=== PATIENT | female | born 1990 | race Caucasian/White ===

== ENCOUNTER 2016-04-03 12:19 | Outpatient (CLI) | payer MEDICAID ==
[2016-04-03 13:03] LABS: APPEARANCE,URINE SLIGHTLY-CLOUDY; BILIRUBIN,URINE NEGATIVE (NEGATIVE); GLUCOSE, URINE NEGATIVE (NEGATIVE); KETONES,URINE NEGATIVE (NEGATIVE); LEUKOCYTE ESTERASE,URINE NEGATIVE (NEGATIVE); NITRITE,URINE NEGATIVE (NEGATIVE); PROTEIN,URINE NEGATIVE (NEGATIVE); URINE SPECIFIC GRAVITY 1.002; UROBILINOGEN,URINE NEGATIVE mg/dL (<2.0)
[2016-04-03 13:10] LABS: AMNISURE (ROM) NEGATIVE (NEGATIVE)
[2016-04-03 13:17] LABS: URINE BARBITURATES SCREEN NEGATIVE; URINE METHADONE SCREEN NEGATIVE; URINE OPIATES LOW NEGATIVE; URINE PHENCYCLIDINE SCREEN NEGATIVE
== END 2016-04-03 13:24 | disposition home or self-care (01) ==
LOC: LC 12:19
PROVIDERS: ATTEND Specialist
PROC: 4A1HXCZ Monitoring of Products of Conception, Cardiac Rate, External Approach (ICD-10-PCS; principal; 2016-04-03)
DX: O47.1 False labor at or after 37 completed weeks of gestation (principal); O46.93 Antepartum hemorrhage, unspecified, third trimester; Z3A.39 39 weeks gestation of pregnancy
CPT/HCPCS: 59025; 80307; 81005; 84112

== ENCOUNTER 2016-04-07 15:25 | Outpatient (CLI) | payer MEDICAID ==
--- NOTE | 2016-04-07 15:32 | Non Stress Test Report ---
Non Stress Test Datetime Report Generated by CPN: 04/07/2016 15:32 DEMOGRAPHIC EGA NST: 39.0 INDICATION Indication for Study (NST) Other: suspected SROM MONITORING Monitor Explained: Monitor Explained; Test Explained; Patient Verbalized Understanding Time on Monitor: 04/03/2016 12:44 Time off Monitor: 04/03/2016 13:12 NST Duration: 28 NST INTERVENTIONS NST Interventions: None Physician Notified NST: Dr Neilsen BABY A: [id number] BABY A Movement : Present Contraction Frequency : x1 FHR Baseline : 145 Accelerations : 15X15 Decelerations : None Variability : Moderate 6-25bpm NST Review: Meets Criteria for Reactive NST NST Review and Verified By : Ulises Barrios RN NST Results: Reactive NST REPORT Report Trigger: Send Report
--- NOTE | 2016-04-07 16:01 | L&D Flow Sheet ---
LD Flowsheet Datetime Report Generated by CPN: 04/07/2016 16:00 Datetime: 04/07/2016 15:48 NBP Sys/Venita/Mean (mmHg): 132 (QS system process) : 89 (QS system process) : 103 (QS system process) Pulse: 123 (QS system process) LaborFlag: Antepartum (QS system process)
[2016-04-07 16:12] LABS: APPEARANCE,URINE CLOUDY; BILIRUBIN,URINE NEGATIVE (NEGATIVE); GLUCOSE, URINE NEGATIVE (NEGATIVE); KETONES,URINE NEGATIVE (NEGATIVE); LEUKOCYTE ESTERASE,URINE LARGE (NEGATIVE); NITRITE,URINE NEGATIVE (NEGATIVE); PROTEIN,URINE NEGATIVE (NEGATIVE); URINE SPECIFIC GRAVITY 1.006; UROBILINOGEN,URINE NEGATIVE mg/dL (<2.0)
[2016-04-07 16:18] LABS: AMNISURE (ROM) NEGATIVE (NEGATIVE)
[2016-04-07 16:28] LABS: URINE BARBITURATES SCREEN NEGATIVE; URINE METHADONE SCREEN NEGATIVE; URINE OPIATES LOW NEGATIVE; URINE PHENCYCLIDINE SCREEN NEGATIVE
--- NOTE | 2016-04-07 16:56 | Non Stress Test Report ---
Non Stress Test Datetime Report Generated by CPN: 04/07/2016 16:55 DEMOGRAPHIC EGA NST: 39.4 INDICATION Indication for Study: Ordered by Provider Indication for Study (NST) Other: LC MONITORING Monitor Explained: Monitor Explained; Test Explained; Patient Verbalized Understanding Time on Monitor: 04/07/2016 15:42 Time off Monitor: 04/07/2016 16:39 NST Duration: 57 NST INTERVENTIONS NST Interventions: PO Hydration Physician Notified NST: P. Schumacher CNM BABY A Movement : Present Contraction Frequency : irreg FHR Baseline : 135 Accelerations : 15X15 Decelerations : None Variability : Moderate 6-25bpm NST Review: Meets Criteria for Reactive NST NST Review and Verified By : lito camp RNC NST Results: Reactive NST REPORT Report Trigger: Send Report
== END 2016-04-07 16:48 | disposition home or self-care (01) ==
LOC: LC 15:25
PROVIDERS: ATTEND Obstetrics & Gynecology
PROC: 4A1HXCZ Monitoring of Products of Conception, Cardiac Rate, External Approach (ICD-10-PCS; principal; 2016-04-07)
DX: O47.1 False labor at or after 37 completed weeks of gestation (principal); Z3A.39 39 weeks gestation of pregnancy
CPT/HCPCS: 59025; 80307; 81005; 84112

== ENCOUNTER 2016-04-16 10:38 | Outpatient (CLI) | payer MEDICAID | END 2016-04-16 11:12 | disposition home or self-care (01) | LOC: LC 10:38 | PROVIDERS: ATTEND Obstetrics & Gynecology | PROC: 4A1HXCZ Monitoring of Products of Conception, Cardiac Rate, External Approach (ICD-10-PCS; principal; 2016-04-16) | DX: O48.0 Post-term pregnancy (principal); Z3A.40 40 weeks gestation of pregnancy | CPT/HCPCS: 59025 ==

== ENCOUNTER 2016-04-17 02:40 | Outpatient (CLI) | payer MEDICAID ==
[2016-04-17 03:15] LABS: APPEARANCE,URINE CLOUDY; BILIRUBIN,URINE NEGATIVE (NEGATIVE); GLUCOSE, URINE NEGATIVE (NEGATIVE); KETONES,URINE 20 mg/dL (NEGATIVE); LEUKOCYTE ESTERASE,URINE TRACE (NEGATIVE); NITRITE,URINE NEGATIVE (NEGATIVE); PROTEIN,URINE NEGATIVE (NEGATIVE); URINE SPECIFIC GRAVITY 1.015; UROBILINOGEN,URINE NEGATIVE mg/dL (<2.0)
[2016-04-17 03:37] LABS: URINE BARBITURATES SCREEN NEGATIVE; URINE METHADONE SCREEN NEGATIVE; URINE OPIATES LOW NEGATIVE; URINE PHENCYCLIDINE SCREEN NEGATIVE
[2016-04-17 05:25] LABS: AMORPHOUS SEDIMENT,URINE TRACE /HPF; APPEARANCE,URINE CLOUDY; BILIRUBIN,URINE NEGATIVE (NEGATIVE); GLUCOSE, URINE NEGATIVE (NEGATIVE); KETONES,URINE TRACE mg/dL (NEGATIVE); LEUKOCYTE ESTERASE,URINE SMALL (NEGATIVE); NITRITE,URINE NEGATIVE (NEGATIVE); PROTEIN,URINE 30 mg/dL (NEGATIVE); URINE SPECIFIC GRAVITY 1.018; UROBILINOGEN,URINE NEGATIVE mg/dL (<2.0)
[2016-04-17] MEDS ORDERED: CEFTRIAXONE INJ 1000 MG VIAL ONE (06:03)
--- NOTE | 2016-04-17 06:45 | Non Stress Test Report ---
Non Stress Test Datetime Report Generated by CPN: 04/17/2016 06:44 DEMOGRAPHIC EGA NST: 41.0 EGA NST: 40.6 INDICATION Indication for Study: Ordered by Provider; Other Indication for Study: Ordered by Provider Indication for Study (NST) Other: labor check Indication for Study (NST) Other: Repeat MONITORING Monitor Explained: Monitor Explained; Test Explained; Patient Verbalized Understanding Monitor Explained: Monitor Explained; Test Explained; Patient Verbalized Understanding Time on Monitor: 04/17/2016 03:04 Time on Monitor: 04/16/2016 10:49 Time off Monitor: 04/17/2016 06:12 Time off Monitor: 04/16/2016 11:09 NST Duration: 188 NST Duration: 20 NST INTERVENTIONS NST Interventions: None NST Interventions: PO Hydration Physician Notified NST: Dr Bell Physician Notified NST: DrKatie Duval BABY A: [id number] BABY A Movement : Present Movement : Present Contraction Frequency : 2-4 Contraction Frequency : Irr FHR Baseline : 135 FHR Baseline : 150 Accelerations : 15X15 Accelerations : 15X15 Decelerations : None Decelerations : None Variability : Moderate 6-25bpm Variability : Moderate 6-25bpm NST Review: Meets Criteria for Reactive NST NST Review: Meets Criteria for Reactive NST NST Review and Verified By : Ayo Montesinos RN NST Review and Verified By : Monty MARADIAGA NST Results: Reactive NST Results: Reactive NST COMMENTS NST Comments: Reactive NST results reviewed with MD. Pt stable for D/C home. NST REPORT Report Trigger: Send Report
[2016-04-17] MEDS ORDERED: OXYCODONE HCL IR 5 MG TABLET PO PRN (22:20)
[2016-04-17] MEDS ORDERED: DIBUCAINE 1% OINTMENT 28 GM TP PRN (22:23)
[2016-04-17] MEDS ORDERED: BENZOCAINE/MENTHOL AEROSOL SPRAY 56 ML TOP PRN (22:23)
[2016-04-17] MEDS ORDERED: MEASLES,MUMPS&RUBELLA VACC/PF 0.5 ML VIAL SUBCUT PRN (22:23)
[2016-04-17] MEDS ORDERED: ZOLPIDEM TARTRATE 5 MG TABLET PO PRN (22:23)
[2016-04-17] MEDS ORDERED: DIPH/PERTUSS(ACELL)/TETANUS VAC/PF 0.5 ML SYR (>=10YO) IM PRN (22:23)
[2016-04-18] MEDS ORDERED: IBUPROFEN 800 MG TABLET PO SCH (06:00)
[2016-04-18] MEDS ORDERED: SENNOSIDES/DOCUSATE 8.6-50 MG 1 EACH TABLET PO SCH (10:00)
[2016-04-18] MEDS ORDERED: FERROUS SULFATE 325 MG TABLET PO SCH (10:00)
[2016-04-18] MEDS ORDERED: PRENATAL VITAMIN W-O CA NO5/FE FUMARATE/FA CAPSULE PO SCH (10:00)
[2016-04-18] MEDS ORDERED: DOCUSATE SODIUM 100 MG CAPSULE PO SCH (10:00)
== END 2016-04-17 06:22 | disposition home or self-care (01) ==
LOC: LC 02:40
PROVIDERS: ATTEND Obstetrics & Gynecology
PROC: 4A1HXCZ Monitoring of Products of Conception, Cardiac Rate, External Approach (ICD-10-PCS; principal; 2016-04-17)
DX: O47.1 False labor at or after 37 completed weeks of gestation (principal); Z3A.41 41 weeks gestation of pregnancy
CPT/HCPCS: 59025; 81005; 81001; 80307; J0696

== ENCOUNTER 2016-04-17 09:47 | Inpatient (IN) | payer MEDICAID ==
[2016-04-17] MEDS ORDERED: RINGERS SOLUTION,LACTATED 1,000 ML IV ONE (09:54)
[2016-04-17] MEDS ORDERED: PENICILLIN G POTASSIUM 5,000,000 UNIT in DEXTROSE 5%-WATER 100 ML IV ONE (09:54)
[2016-04-17] MEDS ORDERED: RINGERS SOLUTION,LACTATED 1,000 ML IV PRN (09:54)
[2016-04-17] MEDS ORDERED: LIDOCAINE 1% INJ-PF (10 MG/ML) 30 ML SDV ONE (09:55)
[2016-04-17] MEDS ORDERED: OXYTOCIN/NORMAL SALINE 20 UNIT/1,000 ML RTUINJ ONE (09:55)
[2016-04-17] MEDS ORDERED: MISOPROSTOL 0.2 MG TABLET ONE (09:55)
[2016-04-17] MEDS ORDERED: FENTANYL CITRATE INJ/PF 100 MCG/2 ML AMPUL ONE (09:56)
[2016-04-17] MEDS ORDERED: EPHEDRINE SULFATE INJ 50 MG/1 ML AMPULE ONE (09:56)
[2016-04-17] MEDS ORDERED: PHENYLEPHRINE HCL INJ/PF 10 MG/1 ML SDV ONE (09:56)
[2016-04-17] MEDS ORDERED: BUPIVACAINE HCL 0.25 % INJ/PF (2.5 MG/1 ML) 30 ML VIAL ONE (09:57)
[2016-04-17] MEDS ORDERED: FENTANYL/BUPIVACAINE/NS/PF 200 MCG/100 ML RTUINJ EPI ONE (09:57)
[2016-04-17] MEDS ORDERED: PENICILLIN G-K 5 MILLION UNIT VIAL ONE ×2 (09:57→13:16)
--- NOTE | 2016-04-17 10:00 | L&D Flow Sheet ---
LD Flowsheet Datetime Report Generated by CPN: 04/17/2016 10:00 Datetime: 04/17/2016 09:48 Frequency (min): q 3 min (Cammie Coreas RN) Pain Scale: 5 (Cammie Coreas RN) Pain Presence: Intermittent (Cammie Coreas RN) Pain Type: Contraction (Cammie Coreas RN) Pain Location: Abdomen; Back (Cammie Coreas RN) Pain Goal: 0 (Cammie Coreas RN) Pain Relief Measures: epidural requested. (Cammie Coreas RN) Pain Coping: Breathing Through Contractions (Cammie Coreas RN) Vaginal Bleeding: Normal Show (Cammie Coreas RN) Level of Consciousness: Fully Conscious (Cammie Coreas RN) DTR's/Clonus: DTRs 2+; No Clonus (Cammie Coreas RN) Headache: Denies (Cammie Coreas RN) Breath Sounds, Left: Clear and Equal (Cammie Coreas RN) Breath Sounds, Right: Clear and Equal (Cammie Coreas RN) Nausea/Vomiting: Denies (Cammie Coreas RN) RUQ Epigastric Pain: Denies (Cammie Coreas RN) LaborFlag: Antepartum (QS system process) Datetime: 04/17/2016 09:43 NBP Sys/Venita/Mean (mmHg): 145 (QS system process) : 95 (QS system process) : 113 (QS system process) Pulse: 130 (QS system process) LaborFlag: Antepartum (QS system process) Datetime: 04/17/2016 09:40 Dilatation (cm): 7.0 (Cammie Coreas RN) Effacement (%): 90 (Cammie Coreas RN) Station: -1 (Cammie Coreas RN) Exam by: Imelda Coreas RN (Cammie Coreas RN) Membrane Status: Bulging (Cammie Coreas RN) Datetime: 04/17/2016 06:22 Communication Comments: Pt D/C home in stable condition per Dr. Bell accompanied by FOB. (Mathieu Bateman RN) Datetime: 04/17/2016 06:18 Teaching Comments: Pt instructed to drink 5-6 pitchers of water per day and return for ctx increasing in intensity and frequency, leaking of fluid, bleeding like a period, and/or decreased movement. Pt instructed to keep scheduled appointments. Care notes given and reviewed with pt. Pt agrees and V/U regarding all topics discussed. (Mathieu Bateman RN) Datetime: 04/17/2016 06:12 Monitor Mode: External; Palpation (Mathieu Bateman RN) Frequency (min): 4-8 (Mathieu Bateman RN) Quality: Mild/Moderate (Mathieu Bateman RN) Duration (sec): 40-70 (Mathieu Bateman RN) Resting Tone (Palpate): Relaxed (Mathieu Bateman RN) Monitor Mode: External US (Mathieu Bateman RN) FHR Baseline Rate : 125 (Mathieu Bateman RN) Variability: Moderate 6-25 bpm (Mathieu Bateman RN) Accelerations: 15X15 (Mathieu Bateman RN) Decelerations: None (Mathieu Bateman RN) Antibiotics: Other Antibiotic @ Rocephin 1gm IM (Mathieu Bateman RN) Medication Comments: IM injection given in left ventrogluteal. Intended effects and possible side effects explained to pt. Pt agrees and V/U. (Mathieu Bateman RN) Datetime: 04/17/2016 06:00 Communication Comments: POC discussed with pt and family, both agree and V/U. (Mathieu Bateman RN) Datetime: 04/17/2016 05:58 Communication: Call/Page Placed to Provider (Mathieu Bateman RN) Provider Notified (Name): Dr Bell (Mathieu Bateman RN) Notification Reason: Status Update (Mathieu Bateman RN) Communication Comments: Called Dr Bell, advised of pt unchanged SVE upon return to room following ambulating unit. advised of clean catch urine results. Orders received to administer 1g Rocephin IM and D/C pt to home. (Mathieu Bateman RN) Datetime: 04/17/2016 05:50 Patient Position/Activity: Right Lateral (Mathieu Bateman RN) Datetime: 04/17/2016 05:49 NBP Sys/Venita/Mean (mmHg): 113 (QS system process) : 76 (QS system process) : 91 (QS system process) Pulse: 96 (QS system process) Pain Scale: 2 (Mathieu Bateman RN) Pain Presence: Intermittent (Mathieu Bateman RN) Pain Type: Contraction (Mathieu Bateman RN) Pain Location: Abdomen (Mathieu Bateman RN) Pain Relief Measures: Comfort Measures (Mathieu Bateman RN) Pain Coping: Talking Through Contractions (Mathieu Bateman RN) Pain Assessment Comments: pt reports feeling better after walking (Mathieu Bateman RN) Dilatation (cm): 2.5 (Mathieu Bateman RN) Effacement (%): 80 (Mathieu Bateman RN) Station: -2 (Mathieu Bateman RN) Exam by: Juan A Bateman RN (Mathieu Bateman RN) Comfort Measures: Breathing/Relaxation (Mathieu Bateman RN) LaborFlag: Antepartum (QS system process) Datetime: 04/17/2016 05:48 Patient Position/Activity: Left Tilt (Mathieu Bateman RN) Datetime: 04/17/2016 05:47 Maternal Comments: external monitors applied. (Mathieu Bateman RN) Maternal Comments: pt returns to room following ambulating unit. (Mathieu Bateman RN) Datetime: 04/17/2016 04:29 Monitor Mode: External; Palpation (Mathieu Bateman, RN) Frequency (min): 1.5-3.5 (Mathieu Bateman, RN) Quality: Mild/Moderate (Mathieu Bateman, RN) Duration (sec): 50-120 (Mathieu Bateman, RN) Resting Tone (Palpate): Relaxed (Mathieu Bateman, RN) Monitor Mode: External US (Mathieu Bateman, RN) FHR Baseline Rate : 135 (Mathieu Bateman, RN) Variability: Moderate 6-25 bpm (Mathieu Bateman, RN) Accelerations: 15X15 (Rukimberlyandra Bateman, RN) Decelerations: None (Mathieu Bateman, RN) Maternal Comments: Monitors D/C'd for pt to ambulate unit per Dr. Bell's order (Mathieu Bateman, RN) Datetime: 04/17/2016 04:27 Communication: Call/Page Placed to Provider (Mathieu Bateman RN) Provider Notified (Name): Dr Bell (Mathieu Bateman RN) Notification Reason: Status Update (Mathieu Bateman RN) Communication Comments: Called Dr. Bell, advised of Gs_Ps and EGA, FHTs, CTX, VS, SVE, pt medical history and complaints and urine results reviewed with MD. Orders received to allow pt to ambulate unit and recheck cervix after 1 hour. (Mathieu Bateman RN) Datetime: 04/17/2016 04:23 Dilatation (cm): 2.5 (Mathieu Bateman RN) Effacement (%): 80 (Mathieu Bateman RN) Station: -2 (Mathieu Bateman RN) Exam by: Juna A Bateman RN (Mathieu Bateman RN) Datetime: 04/17/2016 04:06 NBP Sys/Venita/Mean (mmHg): 123 (QS system process) : 84 (QS system process) : 100 (QS system process) Pulse: 126 (QS system process) LaborFlag: Antepartum (QS system process) Datetime: 04/17/2016 04:00 Monitor Mode: External; Palpation (Rucsandra Fransico, RN) Frequency (min): 2-6.5 (Rucsandra Fransico, RN) Quality: Mild/Moderate (Rucsandra Fransico, RN) Duration (sec): 40-120 (Rucsandra Fransico, RN) Resting Tone (Palpate): Relaxed (Rucsandra Fransico, RN) Monitor Mode: External US (Rucsandra Fransico, RN) FHR Baseline Rate : 135 (Rucsandra Fransico, RN) Variability: Moderate 6-25 bpm (Rucsandra Fransico, RN) Accelerations: 15X15 (Rucsandra Fransico, RN) Decelerations: None (Rucsandra Fransico, RN) Datetime: 04/17/2016 03:47 Patient Care Comments: additional pillows and blankets provided. (Rucsandra Fransico, RN) Datetime: 04/17/2016 03:41 Patient Position/Activity: Right Lateral (Mathieu Bateman, RN) Datetime: 04/17/2016 03:35 NBP Sys/Venita/Mean (mmHg): 119 (QS system process) : 76 (QS system process) : 92 (QS system process) Pulse: 99 (QS system process) LaborFlag: Antepartum (QS system process) Datetime: 04/17/2016 03:30 Monitor Mode: External; Palpation (Mathieu Bateman RN) Frequency (min): 3-5.5 (Mathieu Bateman RN) Quality: Mild/Moderate (Rucsandra Fransico, RN) Duration (sec): 50-70 (Mathieu Bateman, RN) Resting Tone (Palpate): Relaxed (Mathieu Bateman, RN) Monitor Mode: External US (Mathieu Bateman, RN) FHR Baseline Rate : 135 (Mathieu Bateman, RN) Variability: Moderate 6-25 bpm (Rucsandra Bateman, RN) Accelerations: 15X15 (Rukimberlyandra Bateman, RN) Decelerations: None (Mathieu Bateman, RN) Datetime: 04/17/2016 03:10 Temperature (F): 98.1 (Mathieu Bateman, RN) Temperature (C): 36.7 (QS system process) LaborFlag: Antepartum (QS system process) Datetime: 04/17/2016 03:08 Frequency (min): pt unsure (Mathieu Bateman, RN) Pain Scale: 0 (Mathieu Bateman RN) Pain Presence: Intermittent (Mathieu Bateman RN) Pain Type: Contraction (Mathieu Bateman, RN) Pain Location: Abdomen (Mathieu Bateman RN) Pain Goal: 3 (Mathieu Bateman RN) Pain Coping: Talking Through Contractions (Annotations: pt talking through ctx ) (Mathieu Bateman RN) Dilatation (cm): 2.0 (Mathieu Bateman RN) Effacement (%): 50 (Mathieu Bateman RN) Station: -2 (Mathieu Bateman RN) Exam by: Juan A Bateman RN (Mathieu Bateman RN) Vaginal Bleeding: None (Mathieu Bateman RN) Level of Consciousness: Fully Conscious (Mathieu Bateman RN) DTR's/Clonus: DTRs 2+; No Clonus (Mathieu Bateman RN) Headache: Denies (Mathieu Bateman RN) Breath Sounds, Left: Clear and Equal (Mathieu Bateman RN) Breath Sounds, Right: Clear and Equal (Mathieu Bateman RN) Nausea/Vomiting: Present (Annotations: pt reports feeling nauseated. ) (Mathieu Bateman RN) RUQ Epigastric Pain: Denies (Mathieu Bateman RN) LaborFlag: Antepartum (QS system process) Datetime: 04/17/2016 03:05 NBP Sys/Venita/Mean (mmHg): 125 (QS system process) : 80 (QS system process) : 98 (QS system process) Pulse: 113 (QS system process) Instructional Method: Verbal; Patient Instructed; Family/Support Person Instructed; Verbalized Understanding (Mathieu Bateman RN) Plan of Care: Plan of Care Discussed (Mathieu Bateman RN) Unit Routine: [place] to Room; [place]; Bed; Waiting Areas; Phone/Cell Phone Use; Photography; Unit Personnel; Monitoring; Bathroom Privileges (Mathieu Bateman RN) LaborFlag: Antepartum (QS system process)
[2016-04-17] MEDS ORDERED: BUPIVACAINE HCL 0.25 % INJ/PF (2.5 MG/1 ML) 30 ML VIAL INFIL ONE (10:28)
[2016-04-17] MEDS ORDERED: BENZOIN/ALOE VERA/STORAX/TOLU TINCTURE 60 ML TP PRN (10:28)
[2016-04-17] MEDS ORDERED: FENTANYL/BUPIVACAINE/NS/PF 100 ML EPI PRN (10:28)
[2016-04-17 10:40] LABS: ABSOLUTE LYMPHOCYTES (AUTO) 1.5 10^3/uL (0.5-4.7); ABSOLUTE MONOCYTES (AUTO) 0.9 10^3/uL (0.1-1.4); ABSOLUTE NEUT (AUTO) 15.5 10^3/uL (1.7-8.2); BASOPHILS % (AUTO) 0.1 % (0-2); HEMATOCRIT 41.4 % (36.0-47.0); HEMOGLOBIN 14.3 g/dL (12.0-15.5); HGB HCT DIFFERENCE 1.5; LYMPHOCYTES % (AUTO) 8.2 % (13-45); MEAN CORPUSCULAR HEMOGLOBIN 30.6 pg (27.0-33.4); MEAN CORPUSCULAR HGB CONC 34.5 g/dL (32.0-36.0); MEAN CORPUSCULAR VOLUME 89 fl (80-97); MONOCYTES % (AUTO) 4.8 % (3-13); RED BLOOD COUNT 4.67 10^6/uL (3.72-5.28); SEGMENTED NEUTROPHILS % (AUTO) 86.9 % (42-78); WHITE BLOOD COUNT 17.9 10^3/uL (4.0-10.5)
--- NOTE | 2016-04-17 12:00 | L&D Flow Sheet ---
LD Flowsheet Datetime Report Generated by CPN: 04/17/2016 12:00 Datetime: 04/17/2016 11:53 Contraction Comments: toco zeroed (Cammie Baidy, RN) Datetime: 04/17/2016 11:48 Monitor Interventions for UA: Difficult Run Adjusted (Cammie Baidy, RN) Datetime: 04/17/2016 11:45 Monitor Interventions for UA: Difficult Run Adjusted (Cammie Coreas RN) Datetime: 04/17/2016 11:41 NBP Sys/Venita/Mean (mmHg): 135 (QS system process) : 76 (QS system process) : 99 (QS system process) Pulse: 113 (QS system process) LaborFlag: Antepartum (QS system process) Datetime: 04/17/2016 11:39 Dilatation (cm): 9.0 (Cammie Coreas RN) Effacement (%): 100 (Cammie Coreas RN) Station: 0 (Cammie Coreas RN) Exam by: Imelda Coreas RN (Cammie Coreas RN) Membrane Status: Ruptured (Cammie Coreas RN) Membranes Rupture Method: Spontaneous (Cammie Coreas RN) Amniotic Fluid Color: Moderate Meconium (Cammie Coreas RN) Amniotic Fluid Amount: Moderate (Cammie Coreas RN) Amniotic Fluid Odor: Normal (Cammie Coreas RN) Datetime: 04/17/2016 11:37 I/O Interventions: Reynolds Cath Inserted (Cammie Coreas RN) Patient Care Comments: 14f clear yellow urine (Cammie Coreas RN) Datetime: 04/17/2016 11:35 NBP Sys/Venita/Mean (mmHg): 131 (QS system process) : 75 (QS system process) : 95 (QS system process) Pulse: 111 (QS system process) LaborFlag: Antepartum (QS system process) Datetime: 04/17/2016 11:34 NBP Sys/Venita/Mean (mmHg): 130 (QS system process) : 70 (QS system process) : 95 (QS system process) Pulse: 111 (QS system process) LaborFlag: Antepartum (QS system process) Datetime: 04/17/2016 11:33 NBP Sys/Venita/Mean (mmHg): 134 (QS system process) : 77 (QS system process) : 99 (QS system process) Pulse: 112 (QS system process) LaborFlag: Antepartum (QS system process) Datetime: 04/17/2016 11:32 NBP Sys/Venita/Mean (mmHg): 135 (QS system process) : 70 (QS system process) : 97 (QS system process) Pulse: 110 (QS system process) LaborFlag: Antepartum (QS system process) Datetime: 04/17/2016 11:29 Pulse: 118 (QS system process) SpO2 (%): 100 (QS system process) LaborFlag: Antepartum (QS system process) Datetime: 04/17/2016 11:28 NBP Sys/Venita/Mean (mmHg): 133 (QS system process) : 91 (QS system process) : 108 (QS system process) Pulse: 105 (QS system process) LaborFlag: Antepartum (QS system process) Datetime: 04/17/2016 11:27 NBP Sys/Venita/Mean (mmHg): 138 (QS system process) : 107 (QS system process) : 120 (QS system process) Pulse: 126 (QS system process) Epidural Procedure: Cath Placed (Cammie Coreas RN) Epidural Procedure: Test Dose (Cammie Coreas RN) LaborFlag: Antepartum (QS system process) Datetime: 04/17/2016 11:24 Pulse: 111 (QS system process) SpO2 (%): 99 (QS system process) Procedure Type: epidural (Cammie Coreas RN) Procedure Verify: Correct Patient Identity; Correct Side and Site are Marked; Accurate Procedure Consent Form; Agreement on Procedure to be Done; Correct Patient Position; Relevant Images and Results are Properly Labeled and Displayed; Addressed Need to Administer Antibiotics or Fluids for Irrigation; Safety Precautions Based on Patient History or Medication Use (Cammie Coreas RN) Anesthesia Plans: Epidural (Cammie Coreas RN) Epidural Positioning: Sitting (Cammie Coreas RN) LaborFlag: Antepartum (QS system process) Datetime: 04/17/2016 11:19 IV/Blood Work: New IV Bag Hung; IV Bag Number @ 2 (Cammie Coreas, RN) Datetime: 04/17/2016 11:15 NBP Sys/Venita/Mean (mmHg): 144 (QS system process) : 86 (QS system process) : 109 (QS system process) Pulse: 104 (QS system process) LaborFlag: Antepartum (QS system process) Datetime: 04/17/2016 11:09 Pulse: 231 (QS system process) Pulse: 202 (QS system process) SpO2 (%): 81 (QS system process) SpO2 (%): 82 (QS system process) LaborFlag: Antepartum (QS system process) Datetime: 04/17/2016 11:00 NBP Sys/Venita/Mean (mmHg): 143 (QS system process) : 97 (QS system process) : 116 (QS system process) Pulse: 113 (QS system process) Monitor Mode: External; Palpation (Cammie Coreas, RN) Frequency (min): 2-3 (Cammie Coreas, RN) Quality: Moderate to Strong (Cammie Baidy, RN) Duration (sec): 60-90 (Cammie Baibin, RN) Duration Criteria: Less than Two 120 Second Contractions (Cammie Coreas, RN) Pattern: Normal: <= 5 Contractions in 10 Minutes (Cammie Baibin, RN) Resting Tone (Palpate): Relaxed (Cammie Baibin, RN) Monitor Mode: External US (Cammie Coreas, RN) FHR Baseline Rate : 125 (Cammie Baibin, RN) Variability: Moderate 6-25 bpm (Cammie Baidy, RN) Accelerations: 15X15 (Cammie Baidy, RN) Decelerations: None (Cammie Baibin, RN) LaborFlag: Antepartum (QS system process) Datetime: 04/17/2016 10:50 Monitor Interventions for UA: Difficult Run Adjusted (Cammie Coreas, RN) Datetime: 04/17/2016 10:45 NBP Sys/Venita/Mean (mmHg): 137 (QS system process) : 92 (QS system process) : 109 (QS system process) Pulse: 110 (QS system process) LaborFlag: Antepartum (QS system process) Datetime: 04/17/2016 10:30 Monitor Mode: External; Palpation (Cammie Coreas, RN) Frequency (min): 2-4 (Cammie Coreas, RN) Quality: Moderate (Cammie Coreas, RN) Duration (sec): 50-90 (Cammie Coreas, RN) Duration Criteria: Less than Two 120 Second Contractions (Cammie Coreas, RN) Pattern: Normal: <= 5 Contractions in 10 Minutes (Cammie Coreas, RN) Resting Tone (Palpate): Relaxed (Cammie Coreas, RN) Monitor Mode: External US (Cammie Coreas, RN) FHR Baseline Rate : 125 (Cammie Coreas, RN) Variability: Moderate 6-25 bpm (Cammie Coreas, RN) Accelerations: 15X15 (Cammie Coreas, RN) Decelerations: None (Cammie Coreas, RN) Datetime: 04/17/2016 10:29 NBP Sys/Venita/Mean (mmHg): 156 (QS system process) : 98 (QS system process) : 121 (QS system process) Pulse: 118 (QS system process) LaborFlag: Antepartum (QS system process) Datetime: 04/17/2016 10:22 Antibiotics: Penicillin IV (Units) @ 5 million units (Cammie Coreas RN) IV/Blood Work: IV Started; IV Bolus Started (Cammie Coreas RN) Patient Care Comments: 20g in right hand (Cammie Coreas RN) Datetime: 04/17/2016 10:11 Dilatation (cm): 7.0 (Cammie Coreas RN) Effacement (%): 100 (Cammie Coreas RN) Station: -1 (Cammie Coreas RN) Exam by: Imelda Coreas RN (Cammie Coreas RN) Datetime: 04/17/2016 10:07 Respirations: 18 (Cammie Coreas RN) Temperature (F): 97.7 (Cammie Coreas RN) Temperature (C): 36.5 (QS system process) LaborFlag: Antepartum (QS system process)
[2016-04-17] MEDS ORDERED: PENICILLIN G POTASSIUM 2,500,000 UNIT in DEXTROSE 5%-WATER 50 ML IV SCH (14:00)
--- NOTE | 2016-04-17 14:00 | L&D Flow Sheet ---
LD Flowsheet Datetime Report Generated by CPN: 04/17/2016 14:00 Datetime: 04/17/2016 13:46 NBP Sys/Venita/Mean (mmHg): 116 (QS system process) : 69 (QS system process) : 88 (QS system process) Pulse: 94 (QS system process) LaborFlag: Antepartum (QS system process) Datetime: 04/17/2016 13:30 NBP Sys/Venita/Mean (mmHg): 110 (QS system process) : 68 (QS system process) : 83 (QS system process) Pulse: 101 (QS system process) Monitor Mode: External; Palpation (Cammie Coreas RN) Frequency (min): 2-3 (Cammie Coreas RN) Quality: Moderate to Strong (Cammie Coreas RN) Duration (sec): 70-110 (Cammie Coreas RN) Duration Criteria: Less than Two 120 Second Contractions (Cammie Coreas RN) Pattern: Normal: <= 5 Contractions in 10 Minutes (Cammie Coreas RN) Resting Tone (Palpate): Relaxed (Cammie Coreas RN) Monitor Mode: External US (Cammie Coreas RN) FHR Baseline Rate : 120 (Cammie Coreas RN) Variability: Moderate 6-25 bpm (Cammie Coreas RN) Accelerations: None (Cammie Coreas RN) Decelerations: Early (Cammie Coreas RN) Antibiotics: Penicillin IV (Units) @ 2.5 million (Cammie Coreas RN) LaborFlag: Antepartum (QS system process) Datetime: 04/17/2016 13:16 NBP Sys/Venita/Mean (mmHg): 118 (QS system process) : 72 (QS system process) : 89 (QS system process) Pulse: 98 (QS system process) LaborFlag: Antepartum (QS system process) Datetime: 04/17/2016 13:15 Monitor Mode: External; Palpation (Cammie Baidy, RN) Frequency (min): 2-3 (Cammie Baidy, RN) Quality: Moderate to Strong (Cammie Baidy, RN) Duration (sec): 60-120 (Cammie Baidy, RN) Duration Criteria: More than Two 120 Second or Greater Contractions (Cammie Baidy, RN) Pattern: Normal: <= 5 Contractions in 10 Minutes (Cammie Baidy, RN) Resting Tone (Palpate): Relaxed (Cammie Baidy, RN) Monitor Mode: External US (Cammie Baidy, RN) FHR Baseline Rate : 115 (Cammie Baidy, RN) Variability: Moderate 6-25 bpm (Cammie Baidy, RN) Accelerations: None (Cammie Baidy, RN) Decelerations: Early (Cammie Baidy, RN) Datetime: 04/17/2016 13:01 NBP Sys/Venita/Mean (mmHg): 116 (QS system process) : 66 (QS system process) : 86 (QS system process) Pulse: 100 (QS system process) Monitor Interventions for UA: Almedia Adjusted (Cammie Baidy, RN) LaborFlag: Antepartum (QS system process) Datetime: 04/17/2016 13:00 Monitor Mode: External; Palpation (Cammie Baidy, RN) Frequency (min): 2-3 (Cammie Baidy, RN) Quality: Moderate to Strong (Cammie Baidy, RN) Duration (sec): 60-90 (Cammie Baidy, RN) Duration Criteria: Less than Two 120 Second Contractions (Cammie Baidy, RN) Pattern: Normal: <= 5 Contractions in 10 Minutes (Cammie Baidy, RN) Resting Tone (Palpate): Relaxed (Cammie Baidy, RN) Monitor Mode: External US (Cammie Baidy, RN) FHR Baseline Rate : 115 (Cammie Baidy, RN) Variability: Moderate 6-25 bpm (Cammie Baidy, RN) Accelerations: None (Cammie Baidy, RN) Decelerations: Late (Cammie Baidy, RN) Datetime: 04/17/2016 12:58 Patient Position/Activity: Peanut Ball; Right Extreme (Cammie Baidy, RN) Datetime: 04/17/2016 12:47 NBP Sys/Venita/Mean (mmHg): 125 (QS system process) : 74 (QS system process) : 94 (QS system process) Pulse: 90 (QS system process) LaborFlag: Antepartum (QS system process) Datetime: 04/17/2016 12:45 Monitor Mode: External; Palpation (Cammie Coreas, RN) Frequency (min): 2-3 (Cammie Coreas, RN) Quality: Moderate to Strong (Cammie Coreas, RN) Duration (sec): 80-110 (Cammie Coreas, RN) Duration Criteria: Less than Two 120 Second Contractions (Cammie Coreas, RN) Pattern: Normal: <= 5 Contractions in 10 Minutes (Cammie Coreas, RN) Resting Tone (Palpate): Relaxed (Cammie Coreas, RN) Monitor Mode: External US (Cammie Coreas, RN) FHR Baseline Rate : 120 (Cammie Coreas, RN) Variability: Moderate 6-25 bpm (Cammie Baidy, RN) Accelerations: None (Cammie Coreas, RN) Decelerations: Early (Cammie Joss, RN) Datetime: 04/17/2016 12:31 NBP Sys/Venita/Mean (mmHg): 128 (QS system process) : 66 (QS system process) : 87 (QS system process) LaborFlag: Antepartum (QS system process) Datetime: 04/17/2016 12:30 Monitor Mode: External; Palpation (Cammie Coreas, RN) Frequency (min): 1-2 (Cammie Coreas, RN) Quality: Moderate to Strong (Cammie Coreas, RN) Duration (sec): 60-100 (Cammie Coreas, RN) Duration Criteria: Less than Two 120 Second Contractions (Cammie Coreas, RN) Pattern: Normal: <= 5 Contractions in 10 Minutes (Cammie Coreas, RN) Resting Tone (Palpate): Relaxed (Cammie Coreas, RN) Monitor Mode: External US (Cammie Coreas, RN) FHR Baseline Rate : 115 (Cammie Coreas, RN) Variability: Moderate 6-25 bpm (Cammie Baibin, RN) Accelerations: None (Cammie Coreas, RN) Decelerations: None (Cammie Coreas, RN) Datetime: 04/17/2016 12:16 NBP Sys/Venita/Mean (mmHg): 136 (QS system process) : 61 (QS system process) : 88 (QS system process) Pulse: 96 (QS system process) LaborFlag: Antepartum (QS system process) Datetime: 04/17/2016 12:15 Monitor Mode: External; Palpation (Cammie Coreas, RN) Frequency (min): 1.5-2 (Cammie Coreas, RN) Quality: Moderate to Strong (Cammie Coreas, RN) Duration (sec): 60-90 (Cammie Coreas, RN) Duration Criteria: Less than Two 120 Second Contractions (Cammie Coreas, RN) Pattern: Normal: <= 5 Contractions in 10 Minutes (Cammie Coreas, RN) Resting Tone (Palpate): Relaxed (Cammie Coreas, RN) Monitor Mode: External US (Cammie Coreas, RN) FHR Baseline Rate : 115 (Cammie Coreas, RN) Variability: Moderate 6-25 bpm (Cammie Baidy, RN) Accelerations: 15X15 (Cammie Baibin, RN) Decelerations: Early; Prolonged (Cammie Joss, RN) Datetime: 04/17/2016 12:12 Dilatation (cm): 9.5 (Cammie Coreas, SHAI) Effacement (%): 100 (Cammie Coreas, RN) Station: 0 (Cammie Coreas RN) Exam by: Imelda Coreas RN (Cammie Coreas, SHAI) Datetime: 04/17/2016 12:09 Actions for Decelerations: Side to Side (Cammie Coreas, SHAI) Datetime: 04/17/2016 12:02 NBP Sys/Venita/Mean (mmHg): 126 (QS system process) : 88 (QS system process) : 102 (QS system process) Pulse: 108 (QS system process) LaborFlag: Antepartum (QS system process) Datetime: 04/17/2016 12:00 Monitor Mode: External; Palpation (Cammie Coreas RN) Frequency (min): 2-3 (Cammie Coreas RN) Quality: Moderate to Strong (Cammie Coreas RN) Duration (sec): 40-90 (Cammie Coreas RN) Duration Criteria: Less than Two 120 Second Contractions (Cammie Coreas RN) Pattern: Normal: <= 5 Contractions in 10 Minutes (Cammie Coreas RN) Resting Tone (Palpate): Relaxed (Cammie Coreas RN) Monitor Mode: External US (Cammie Coreas, SHAI) FHR Baseline Rate : 115 (Cammie Coreas RN) Variability: Moderate 6-25 bpm (Cammie Coreas RN) Accelerations: None (Cammie Coreas RN) Decelerations: Early (Cammie Coreas RN)
--- NOTE | 2016-04-17 16:00 | L&D Flow Sheet ---
LD Flowsheet Datetime Report Generated by CPN: 04/17/2016 16:00 Datetime: 04/17/2016 15:50 Respirations: 18 (Cammie Coreas, SHAI) Temperature (F): 98.6 (Cammie Coreas, RN) Temperature (C): 37.0 (QS system process) LaborFlag: Antepartum (QS system process) Datetime: 04/17/2016 15:45 NBP Sys/Venita/Mean (mmHg): 126 (QS system process) : 64 (QS system process) : 91 (QS system process) Pulse: 134 (QS system process) LaborFlag: Antepartum (QS system process) Datetime: 04/17/2016 15:31 NBP Sys/Venita/Mean (mmHg): 126 (QS system process) : 72 (QS system process) : 93 (QS system process) Pulse: 146 (QS system process) LaborFlag: Antepartum (QS system process) Datetime: 04/17/2016 15:16 NBP Sys/Venita/Mean (mmHg): 128 (QS system process) : 73 (QS system process) : 95 (QS system process) Pulse: 127 (QS system process) LaborFlag: Antepartum (QS system process) Datetime: 04/17/2016 15:01 NBP Sys/Venita/Mean (mmHg): 152 (QS system process) : 81 (QS system process) : 109 (QS system process) Pulse: 118 (QS system process) LaborFlag: Antepartum (QS system process) Datetime: 04/17/2016 14:33 Patient Position/Activity: Hands-Knees (Cammie Baidy, RN) Datetime: 04/17/2016 14:31 NBP Sys/Venita/Mean (mmHg): 132 (QS system process) : 76 (QS system process) : 98 (QS system process) Pulse: 110 (QS system process) LaborFlag: Antepartum (QS system process) Datetime: 04/17/2016 14:16 NBP Sys/Venita/Mean (mmHg): 140 (QS system process) : 76 (QS system process) : 103 (QS system process) Pulse: 108 (QS system process) LaborFlag: Antepartum (QS system process) Datetime: 04/17/2016 14:15 Monitor Mode: External; Palpation (Cammie Coreas RN) Frequency (min): 1.5-2 (Cammie Coreas RN) Quality: Moderate to Strong (Cammie Coreas RN) Duration (sec): 40-100 (Cammie Coreas RN) Duration Criteria: Less than Two 120 Second Contractions (Cammie Coreas RN) Pattern: Normal: <= 5 Contractions in 10 Minutes (Cammie Coreas RN) Resting Tone (Palpate): Relaxed (Cammie Coreas, RN) Monitor Mode: External US (Cammie Coreas RN) FHR Baseline Changes: Unable to Determine (Cammie Coreas RN) Variability: Minimal - Undetectable to <=5 bpm (Cammie Coreas RN) Accelerations: None (Cammie Coreas RN) Decelerations: None (Cammie Coreas, RN) Datetime: 04/17/2016 14:14 Monitor Interventions for FHR: Ultrasound Adjusted (Cammie Baidy, RN) Datetime: 04/17/2016 14:07 Respirations: 16 (Cammie Baidy, RN) Temperature (F): 98.7 (Cammie Coreas, RN) Temperature (C): 37.1 (QS system process) LaborFlag: Antepartum (QS system process) Datetime: 04/17/2016 14:03 Communication Comments: Dr Duval notified of 150/77 (Cammie Baidy, RN) Datetime: 04/17/2016 14:01 NBP Sys/Venita/Mean (mmHg): 150 (QS system process) : 77 (QS system process) : 104 (QS system process) Pulse: 131 (QS system process) LaborFlag: Antepartum (QS system process) Datetime: 04/17/2016 14:00 Monitor Mode: External; Palpation (Cammie Coreas RN) Frequency (min): 2-3 (Cammie Coreas RN) Quality: Moderate to Strong (Cammie Coreas RN) Duration (sec): 50-80 (Cammie Coreas RN) Duration Criteria: Less than Two 120 Second Contractions (Cammie Coreas RN) Pattern: Normal: <= 5 Contractions in 10 Minutes (Cammie Coreas RN) Resting Tone (Palpate): Relaxed (Cammie Coreas RN) Monitor Mode: External US (Cammie Coreas RN) FHR Baseline Changes: Unable to Determine (Cammie Coreas RN) Variability: Moderate 6-25 bpm (Cammie Coreas RN) Accelerations: 15X15 (Cammie Coreas, RN) Decelerations: Prolonged (Cammie Coreas RN) Dilatation (cm): 10.0 (Cammie Coreas RN) Effacement (%): 100 (Cammie Coreas RN) Station: 1 (Cammie Coreas, RN) Exam by: Imelda Coreas RN (Cammie Coreas, RN) Vaginal Exam Comments: anterior lip (Cammie Coreas RN) Patient Position/Activity: Tailors (Cammie Coreas, SHAI) Pushing: No Urge to Push (Cammie Coreas, SHAI)
[2016-04-17] MEDS ORDERED: DIPHENHYDRAMINE HCL 50 MG/ML VIAL ONE (16:29)
--- NOTE | 2016-04-17 18:00 | L&D Flow Sheet ---
LD Flowsheet Datetime Report Generated by CPN: 04/17/2016 18:00 Datetime: 04/17/2016 17:46 NBP Sys/Venita/Mean (mmHg): 134 (QS system process) : 74 (QS system process) : 98 (QS system process) Pulse: 137 (QS system process) Datetime: 04/17/2016 17:44 Stage of : Recovery (Cammie Coreas RN) Respirations: 16 (Cammie Coreas RN) Temperature (F): 99.1 (Cammie Coreas RN) Temperature (C): 37.3 (QS system process) Temperature Route: Axillary (Cammie Coreas RN) Pain Scale: 0 (Cammie Coreas RN) Pain Presence: None/Denies (Cammie Coreas RN) Pain Type: N/A (Cammie Coreas RN) Datetime: 04/17/2016 17:31 NBP Sys/Venita/Mean (mmHg): 129 (QS system process) : 81 (QS system process) : 101 (QS system process) Pulse: 160 (QS system process) LaborFlag: Antepartum (QS system process) Datetime: 04/17/2016 17:16 NBP Sys/Venita/Mean (mmHg): 137 (QS system process) : 70 (QS system process) : 100 (QS system process) Pulse: 144 (QS system process) LaborFlag: Antepartum (QS system process) Datetime: 04/17/2016 17:02 NBP Sys/Venita/Mean (mmHg): 134 (QS system process) : 80 (QS system process) : 102 (QS system process) Pulse: 126 (QS system process) LaborFlag: Antepartum (QS system process) Datetime: 04/17/2016 16:45 NBP Sys/Venita/Mean (mmHg): 138 (QS system process) : 83 (QS system process) : 106 (QS system process) Pulse: 105 (QS system process) LaborFlag: Antepartum (QS system process) Datetime: 04/17/2016 16:42 Patient Position/Activity: Left Extreme; Peanut Ball; Trendelenburg (Cammie Baidy, RN) Patient Care Comments: ice pack applied to perineum. (Cammie Coreas, RN) Datetime: 04/17/2016 16:31 NBP Sys/Venita/Mean (mmHg): 138 (QS system process) : 82 (QS system process) : 104 (QS system process) Pulse: 134 (QS system process) LaborFlag: Antepartum (QS system process) Datetime: 04/17/2016 16:29 Analgesics/Sedatives: Benadryl (mg) @ 50 (Cammie Coreas, RN) Medication Comments: IV (Cammie Coreas, RN) Datetime: 04/17/2016 16:27 Communication Comments: Dr Duval notified of vaginal swelling, orders received for IV benadryl. (Cammie Baidy, RN) Datetime: 04/17/2016 16:17 Pushing Position: Pushing Right Side (Cammie Baidy, RN) Datetime: 04/17/2016 16:10 Pushing Progress: Descent with Pushing; Caput Noted (Cammie Baidy, RN) Datetime: 04/17/2016 16:06 Stage 2 Comments: pushing hands and knees (Cammie Coreas, RN) Datetime: 04/17/2016 16:01 NBP Sys/Venita/Mean (mmHg): 139 (QS system process) : 81 (QS system process) : 103 (QS system process) Pulse: 115 (QS system process) LaborFlag: Antepartum (QS system process)
[2016-04-17] MEDS ORDERED: OXYCODONE HCL IR 5 MG TABLET PO PRN (18:41)
[2016-04-17] MEDS ORDERED: OXYCODONE HCL IR 5 MG TABLET ONE (18:45)
[2016-04-17] MEDS ORDERED: IBUPROFEN 800 MG TABLET ONE (18:45)
--- NOTE | 2016-04-17 19:31 | Delivery Summary ---
Del Sum A-C Datetime Report Generated by CPN: 04/17/2016 19:30 ADMISSION DATA Chief Complaint: Uterine Contractions Indication for Induction: Not Applicable Admission Impression: Postterm, Intrauterine ; Active Labor; Intact Membranes Admit Provider Comments: PCN for +GBS DELIVERY PERSONNEL Delivery Doctor:: Naeem Duval, DO Labor and Delivery Nurse:: Cammie Coreas RN Nursery Nurse:: Barbara Moser RN Telesales Professional/CHRISTIE: Taras Argueta CST Additional Personnel: : Renzo Rodriguez, SN MATERNAL INFORMATION Delivery Anesthesia: Epidural Medications After Delivery: Pitocin Drip 20 Units/1000ml NSS Estimated Blood Loss (ml): 300 Maternal Complications: None Provider Comments: of viable male in OA position Placenta delievered spontaneous and intact with 3v cord Fundus firm LABOR SUMMARY EDC: 04/10/2016 00:00 No. Babies in Womb: 1 Attempted: No Labor Anesthesia: Epidural LABOR INFORMATION Reason for Induction: Not Applicable Onset of Labor: 04/16/2016 23:00 Complete Dilatation: 04/17/2016 14:52 Oxytocin: N/A Group B Beta Strep: Positive Antibiotics # of Doses: 2 Antibiotics Time of Last Dose: 1330 Name of Antibiotic Given: PCN Steroids Given: None Reason Steroids Not Administered: Not Applicable MEMBRANES Membranes Rupture Method: Spontaneous Rupture of Membranes: 04/17/2016 11:39 Length of Rupture (hr): 6.05 Amniotic Fluid Color: Moderate Meconium Amniotic Fluid Amount: Moderate Amniotic Fluid Odor: Normal STAGES OF LABOR Stage 1 hr: 15 Stage 1 min: 52 Stage 2 hr: 2 Stage 2 min: 50 Stage 3 hr: 0 Stage 3 min: 2 Total Time in Labor hr: 18 Total Time in Labor min: 44 VAGINAL DELIVERY Episiotomy: None Laceration Extension: Second Degree Laceration Type: Perineal Laceration Repair: Yes Laceration Repair Note: repaired with 2-0 chromic in usual fashion with good hemostasis Sponge Count Correct: Yes Sharps Count Correct: Yes CSECTION DELIVERY Primary Indication: N/A Secondary Indication: N/A CSection Incidence: N/A Labor: N/A Elective: N/A CSection Incision: N/A BABY A INFORMATION Infant Delivery Date/Time: 04/17/2016 17:42 Method of Delivery: Vaginal Born in Route : No : N/A Forceps: N/A Vacuum Extraction: N/A Shoulder Dystocia : No PRESENTATION/POSITION BABY A Presentation: Cephalic Cephalic Presentation: Vertex Vertex Position: Direct Occiput Anterior Breech Presentation: N/A PLACENTA INFORMATION BABY A Placenta Delivery Time : 04/17/2016 17:44 Placenta Method of Delivery: Spontaneous Placenta Status: Delivered SCORES BABY A Heart Rate 1 min: >100 bpm Resp Effort 1 min: Slow, Irregular Reflex Irritability 1 min: Grimace Muscle Tone 1 min: Some Flexion of Extremities Color 1 min: Body Kelley, Extremities Blue Resuscitation Effort 1 min: Tactile Stimulation; PPV/NCPAP SCORE 1 MIN: 6 Heart Rate 5 min: >100 bpm Resp Effort 5 min: Good Cry Reflex Irritability 5 min: Cough or Sneeze or Pulls Away Muscle Tone 5 min: Some Flexion of Extremities Color 5 min: Body Kelley, Extremities Blue Resuscitation Effort 5 min: Tactile Stimulation SCORE 5 MIN: 8 INFORMATION BABY A Gestational Age at Delivery: 41.0 Gestational Status: Late Term- 41- 41.6 Weeks Outcome : Liveborn Infant Condition : Fair Infant Sex: Male IDENTIFICATION BABY A Infant Verification Date/Time: 04/17/2016 18:01 ID Band Number: [id number] Mother's Name Verified: Yes RN Verifying Infant: LKatie Martinez, RN and H. Fredy, RN WEIGHT/LENGTH BABY A Infant Birthweight (gm): 3742 Infant Weight (lb): 8 Weight (oz): 4 Infant Length (in): 21.00 Length (cm): 53.34 CORD INFORMATION BABY A No. Cord Vessels: 3 Nuchal Cord : N/A Cord Blood Taken: Yes-For Eval (Mom's Blood Type - or O+) Suction: Mouth; Nose ASSESSMENT BABY A Infant Complications: Meconium Physical Findings at Delivery: Caput Succedaneum; Molding of the Head Infant Respirations: Appears Normal Skin to Skin: Yes Skin to Skin Time (min): 30 Coconut Candy Maker/ALS Called : No Care By: Jeanette Martinez RN Transferred To: Remains with Mother BABY B INFORMATION : N/A SIGNATURES Signature: with User ID: Roberto Carlos
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
[2016-04-17] MEDS ORDERED: DIPH/PERTUSS(ACELL)/TETANUS VAC/PF 0.5 ML SYR (>=10YO) IM PRN (22:48)
[2016-04-17] MEDS ORDERED: ZOLPIDEM TARTRATE 5 MG TABLET PO PRN (22:48)
[2016-04-17] MEDS ORDERED: MEASLES,MUMPS&RUBELLA VACC/PF 0.5 ML VIAL SUBCUT PRN (22:48)
[2016-04-17] MEDS ORDERED: DIBUCAINE 1% OINTMENT 28 GM TP PRN (22:48)
[2016-04-18] MEDS: IBUPROFEN 800 MG TABLET PO SCH ×3 (06:00→21:58)
--- NOTE | 2016-04-18 07:00 | L&D Flow Sheet ---
LD Flowsheet Datetime Report Generated by CPN: 04/18/2016 07:00 Datetime: 04/17/2016 21:40 Stage of : Recovery (Mathieu Bateman, RN) Datetime: 04/17/2016 21:25 Stage of : Recovery (Rucsclifra Fransico, RN) NBP Sys/Venita/Mean (mmHg): 102 (QS system process) : 52 (QS system process) : 73 (QS system process) Pulse: 117 (QS system process) Respirations: 18 (Rucsandra Fransico, RN) Pain Scale: 2 (Mathieu Bateman, RN) Pain Presence: Constant (Mathieu Bateman RN) Pain Type: Ache (Mathieu Bateman RN) Pain Location: Perineum (Mathieu Bateman, RN) Pain Goal: 4 (Mathieu Bateman RN) Pain Relief Measures: Comfort Measures (Mathieu Bateman RN) Datetime: 04/17/2016 21:15 NBP Sys/Venita/Mean (mmHg): 103 (QS system process) : 57 (QS system process) : 75 (QS system process) Pulse: 129 (QS system process) Datetime: 04/17/2016 21:00 NBP Sys/Venita/Mean (mmHg): 101 (QS system process) : 58 (QS system process) : 77 (QS system process) Pulse: 121 (QS system process) Datetime: 04/17/2016 20:45 NBP Sys/Venita/Mean (mmHg): 109 (QS system process) : 58 (QS system process) : 80 (QS system process) Pulse: 118 (QS system process) Datetime: 04/17/2016 20:31 NBP Sys/Venita/Mean (mmHg): 115 (QS system process) : 59 (QS system process) : 83 (QS system process) Pulse: 117 (QS system process) Datetime: 04/17/2016 20:16 NBP Sys/Venita/Mean (mmHg): 115 (QS system process) : 55 (QS system process) : 81 (QS system process) Pulse: 137 (QS system process) Datetime: 04/17/2016 20:01 NBP Sys/Venita/Mean (mmHg): 119 (QS system process) : 62 (QS system process) : 84 (QS system process) Pulse: 130 (QS system process) Datetime: 04/17/2016 19:39 Stage of : Recovery (Rucsandra Fransico, RN) Datetime: 04/17/2016 19:31 Stage of : Recovery (Rucsclifra Fransico, RN) NBP Sys/Venita/Mean (mmHg): 133 (QS system process) : 74 (QS system process) : 98 (QS system process) Pulse: 110 (QS system process) Respirations: 18 (Mathieu Bateman, RN) Pain Scale: 4 (Akashcsмария Bateman, RN) Pain Presence: Constant (Rucsandra Fransico, RN) Pain Type: Ache (Rucsandra Fransico, RN) Pain Location: Perineum (Mathieu Bateman, RN) Pain Goal: 4 (Rucsandra Bateman, RN) Pain Relief Measures: Comfort Measures (Rucsandra Fransico, RN) Datetime: 04/17/2016 19:25 Stage of : Recovery (Mathieu Bateman, RN) Temperature (F): 98.7 (Akashandra Bateman, RN) Temperature (C): 37.1 (QS system process) Pain Scale: 4 (Mathieu Bateman, RN) Pain Presence: Constant (Mathieu Bateman, RN) Pain Type: Ache (Mathieu Bateman, RN) Pain Location: Perineum (Rucsandra Bateman, RN) Pain Goal: 4 (Rucsandra Bateman, RN) Pain Relief Measures: Comfort Measures (Akashandra Bateman, RN) Datetime: 04/17/2016 19:16 NBP Sys/Venita/Mean (mmHg): 136 (QS system process) : 79 (QS system process) : 102 (QS system process) Pulse: 88 (QS system process) Datetime: 04/17/2016 19:01 NBP Sys/Venita/Mean (mmHg): 140 (QS system process) : 86 (QS system process) : 109 (QS system process) Pulse: 100 (QS system process)
[2016-04-18 07:36] LABS: HEMATOCRIT 32.3 % (36.0-47.0); MEAN CORPUSCULAR HEMOGLOBIN 30.4 pg (27.0-33.4); MEAN CORPUSCULAR HGB CONC 34.5 g/dL (32.0-36.0); MEAN CORPUSCULAR VOLUME 88 fl (80-97); RED BLOOD COUNT 3.66 10^6/uL (3.72-5.28); RED CELL DISTRIBUTION WIDTH 13.5 % (11.5-14.0); WHITE BLOOD COUNT 14.7 10^3/uL (4.0-10.5)
[2016-04-18 07:52] LABS: HEMOGLOBIN 11.1 g/dL (12.0-15.5)
[2016-04-18] MEDS: BENZOCAINE/MENTHOL AEROSOL SPRAY 56 ML TOP PRN (09:20)
[2016-04-18] MEDS: SENNOSIDES/DOCUSATE 8.6-50 MG 1 EACH TABLET PO SCH (09:21)
[2016-04-18] MEDS: PRENATAL VITAMIN W-O CA NO5/FE FUMARATE/FA CAPSULE PO SCH (09:21)
[2016-04-18] MEDS: DOCUSATE SODIUM 100 MG CAPSULE PO SCH ×2 (09:22→18:20)
[2016-04-18] MEDS: FERROUS SULFATE 325 MG TABLET PO SCH ×2 (09:22→18:20)
--- NOTE | 2016-04-18 11:41 | PDOC PROGRESS REPORT ---
Subjective-OB Subjective: Post Delivery Day: 25 year old. Denies any needs at this time. Pt has FC in to BSD due to edema, doesn't want to get out of bed. Bleeding normal. Regular diet. Physical Exam (OB) Vital Signs: Temp Pulse Resp BP Pulse Ox 98.2 F 85 16 102/65 99 04/18/16 08:33 04/18/16 08:33 04/18/16 08:33 04/18/16 08:33 04/18/16 08:33 Intake & Output 04/17/16 04/18/16 04/19/16 06:59 06:59 06:59 Output Total 2600 Balance -2600 Weight 88.1 kg - Episiotomy/Laceration Site Condition: Well Approximated, Ecchymosis, Edematous Episiotomy/Laceration Note: urethra not edematous, FC needs to be discontinued - Lochia Lochia Amount: Small 10-25 ml Lochia Color: Rubra/Red - Abdomen Description: Soft, Round Hernia Present: No Fundal Description: Firm, Midline Fundal Height: u/u - u/2 Objective-Diagnostic Laboratory: 04/18/16 07:20 04/17/16 04/18/16 04/18/16 10:24 07:20 07:20 WBC 14.7 H RBC 3.66 L Hgb 11.1 L D Hct 32.3 L MCV 88 MCH 30.4 MCHC 34.5 RDW 13.5 Plt Count 240 Blood Type O NEGATIVE O NEGATIVE Antibody Screen POSITIVE Assessment and Plan(PN) - Assessment and Plan (1) Vaginal delivery Is this a current diagnosis for this admission?: Yes - Time Spent with Patient Time with patient: Less than 15 minutes - Disposition Anticipated Discharge: Home Within: within 48 hours
[2016-04-18] MEDS ORDERED: SERTRALINE HCL 50 MG TABLET PO ONE (12:15)
--- NOTE | 2016-04-18 18:00 | L&D Current Admission ---
Current Admit Datetime Report Generated by CPN: 04/18/2016 18:00 ADMISSION INFORMATION Current Admit Date/Time: 04/17/2016 09:39 (04/17/2016 03:08:Cammie Coreas RN) Reason for Admission: Onset of Labor (04/17/2016 03:08:Cammie Coreas RN) Chief Complaint: Contractions (04/17/2016 09:48:Cammie Coreas RN) EGA per Dates: 41.0 (04/17/2016 03:08:QS system process) Method of Arrival: Ambulatory (04/17/2016 03:08:Cammie Coreas RN) Reason for Induction: Not Applicable (04/17/2016 03:08:Cammie Coreas RN) Records Available: Yes; No (04/17/2016 03:08:Cammie Coreas RN) General Admission Information: Reviewed; Updated; Confirmed (04/17/2016 03:08:Cammie Coreas RN) General Admission Reviewed By: Jeanette Martinez RN (04/17/2016 03:08:Cammie Coreas RN) BELONGINGS/ADVANCED DIRECTIVES Valuables/Personal Effects: Purse/Wallet; Cell Phone (04/17/2016 03:08:Cammie Coreas RN) Other Belongings: clothing (04/17/2016 03:08:Cammie Coreas RN) Disposition of Belongings: Kept with Patient (04/17/2016 03:08:Cammie Coreas RN) Advance Direct for Healthcare: No, and Wants No Information (04/17/2016 03:08:Cammie Coreas RN) Durable Power of Reporting Consultant: No (04/17/2016 03:08:Cammie Coreas RN) Living Will: No (04/17/2016 03:08:Cammie Coreas RN) Organ Donor: Yes (04/17/2016 03:08:Cammie Coreas RN) Pt Rights Information Given: Yes (04/17/2016 03:08:Cammie Coreas RN) Pt Understands Pt Rights: Yes (04/17/2016 03:08:Cammie Coreas RN) LEARNING ASSESSMENT Knowledge Level: Understands L_D Process; Understands Care Activities; Had Pre-Hospital Education; Understands Diagnosis (04/17/2016 03:08:Cammie Coreas RN) Barriers to Learning: None (04/17/2016 03:08:Cammie Coreas RN) Learning Readiness: Motivated (04/17/2016 03:08:Cammie Coreas RN) Learns Best By: 1 to 1 Instruction; Demonstration (04/17/2016 03:08:Cammie Coreas RN) Learning Needs: Labor and Delivery Process; Pain Management; Symptoms to Report; Treatment Plan; Medication; Diagnosis; Nutrition; Equipment; Care; Community Resources (04/17/2016 03:08:Cammie Coreas RN) DOMESTIC VIOLANCE SCREENING Dom Viol Threatened/Hurt: No (04/17/2016 03:08:Cammie Coreas RN) Hx of Abuse/Neglect past 2yrs: No (04/17/2016 03:08:Cammie Coreas RN) Feel Unsafe Going Home: No (04/17/2016 03:08:Cammie Coreas RN) Addt'l Observ Indicating Abuse: No (04/17/2016 03:08:Cammie Coreas RN) Reason Unable to Complete Screen: N/A, Screen Completed (04/17/2016 03:08:Cammie Coreas RN) Considered Personal Harm/Suicide: No (04/17/2016 03:08:Cammie Coreas RN) NUTRITIONAL/FUNCTIONAL SCREENING Problem with Appetite >5 Days: No (04/17/2016 03:08:Cammie Coreas RN) Chew/Swallow Difficulties: No (04/17/2016 03:08:Cammie Coreas RN) Inappropriate Wt Gain/Loss: No (04/17/2016 03:08:Cammie Coreas RN) Presence Skin Breakdown/Ulcer: No (04/17/2016 03:08:Cammie Coreas RN) Special Diet: No (04/17/2016 03:08:Cammie Coreas RN) Pt Requests Potato Chip Packaging Machine Operator Visit: No (04/17/2016 03:08:Cammie Coreas RN) Hx of Any of the Following?: N/A (04/17/2016 03:08:Cammie Coreas RN) New Diagnosis of: N/A (04/17/2016 03:08:Cammie Coreas RN) Requires Assist w/Ambulation: No (04/17/2016 03:08:Cammie Coreas RN) Uses Assist Device to Ambulate: No (04/17/2016 03:08:Cammie Coreas RN) Pt Requires Help w/ADL's: No (04/17/2016 03:08:Cammie Coreas RN)
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
[2016-04-19] MEDS: IBUPROFEN 800 MG TABLET PO SCH ×2 (05:50→13:55)
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
--- NOTE | 2016-04-19 06:00 | L&D Current Admission ---
Current Admit Datetime Report Generated by CPN: 04/19/2016 06:00 ADMISSION INFORMATION Current Admit Date/Time: 04/17/2016 09:39 (04/17/2016 03:08:Cammie Coreas RN) Reason for Admission: Onset of Labor (04/17/2016 03:08:Cammie Coreas RN) Chief Complaint: Contractions (04/17/2016 09:48:Cammie Coreas RN) EGA per Dates: 41.0 (04/17/2016 03:08:QS system process) Method of Arrival: Ambulatory (04/17/2016 03:08:Cammie Coreas RN) Reason for Induction: Not Applicable (04/17/2016 03:08:Cammie Coreas RN) Records Available: Yes; No (04/17/2016 03:08:Cammie Coreas RN) General Admission Information: Reviewed; Updated; Confirmed (04/17/2016 03:08:Cammie Coreas RN) General Admission Reviewed By: Jeanette Martinez RN (04/17/2016 03:08:Cammie Coreas RN) BELONGINGS/ADVANCED DIRECTIVES Valuables/Personal Effects: Purse/Wallet; Cell Phone (04/17/2016 03:08:Cammie Coreas RN) Other Belongings: clothing (04/17/2016 03:08:Cammie Coreas RN) Disposition of Belongings: Kept with Patient (04/17/2016 03:08:Cammie Coreas RN) Advance Direct for Healthcare: No, and Wants No Information (04/17/2016 03:08:Cammie Coreas RN) Durable Power of Farm Management Adviser: No (04/17/2016 03:08:Cammie Coreas RN) Living Will: No (04/17/2016 03:08:Cammie Coreas RN) Organ Donor: Yes (04/17/2016 03:08:Cammie Coreas RN) Pt Rights Information Given: Yes (04/17/2016 03:08:Cammie Coreas RN) Pt Understands Pt Rights: Yes (04/17/2016 03:08:Cammie Coreas RN) LEARNING ASSESSMENT Knowledge Level: Understands L_D Process; Understands Care Activities; Had Pre-Hospital Education; Understands Diagnosis (04/17/2016 03:08:Cammie Coreas RN) Barriers to Learning: None (04/17/2016 03:08:Cammie Coreas RN) Learning Readiness: Motivated (04/17/2016 03:08:Cammie Coreas RN) Learns Best By: 1 to 1 Instruction; Demonstration (04/17/2016 03:08:Cammie Coreas RN) Learning Needs: Labor and Delivery Process; Pain Management; Symptoms to Report; Treatment Plan; Medication; Diagnosis; Nutrition; Equipment; Care; Community Resources (04/17/2016 03:08:Cammie Coreas RN) DOMESTIC VIOLANCE SCREENING Dom Viol Threatened/Hurt: No (04/17/2016 03:08:Cammie Coreas RN) Hx of Abuse/Neglect past 2yrs: No (04/17/2016 03:08:Cammie Coreas RN) Feel Unsafe Going Home: No (04/17/2016 03:08:Cammie Coreas RN) Addt'l Observ Indicating Abuse: No (04/17/2016 03:08:Cammie Coreas RN) Reason Unable to Complete Screen: N/A, Screen Completed (04/17/2016 03:08:Cammie Coreas RN) Considered Personal Harm/Suicide: No (04/17/2016 03:08:Cammie Coreas RN) NUTRITIONAL/FUNCTIONAL SCREENING Problem with Appetite >5 Days: No (04/17/2016 03:08:Cammie Coreas RN) Chew/Swallow Difficulties: No (04/17/2016 03:08:Cammie Coreas RN) Inappropriate Wt Gain/Loss: No (04/17/2016 03:08:Cammie Coreas RN) Presence Skin Breakdown/Ulcer: No (04/17/2016 03:08:Cammie Coreas RN) Special Diet: No (04/17/2016 03:08:Cammie Coreas RN) Pt Requests C D Reactor Operator Visit: No (04/17/2016 03:08:Cammie Coreas RN) Hx of Any of the Following?: N/A (04/17/2016 03:08:Cammie Coreas RN) New Diagnosis of: N/A (04/17/2016 03:08:Cammie Coreas RN) Requires Assist w/Ambulation: No (04/17/2016 03:08:Cammie Coreas RN) Uses Assist Device to Ambulate: No (04/17/2016 03:08:Cammie Coreas RN) Pt Requires Help w/ADL's: No (04/17/2016 03:08:Cammie Coreas RN)
--- NOTE | 2016-04-19 06:15 | L&D Care Plan ---
LD CARE PLANS Datetime Report Generated by CPN: 04/19/2016 06:15 Datetime: 04/17/2016 09:46 Pain State: Risk For (Cammie Coreas RN) Related To: Labor and Delivery Process (Cammie Coreas RN) Goal(s): Patients Pain will be Assessed and Managed; Patient will Verbalize Adequate Relief of Pain or the Ability to [place] with Current Pain (Cammie Coreas RN) Interventions: Assess Pain Severity on Scale of 0 (None) to 5 (Severe); Assess Type, Location and Intensity of Pain Each Time Client Reports Discomfort and Notify Provider if Unusal Pain Develops; Encourage Proper Breathing and Relaxation Techniques; Offer Alternatives Such as Repositioning, Calm Environment, Massages, Diversional Activities, Ice Pack, Splinting, and Ambulation; Administer Analgesics as Ordered; Assist with Epidural Placement as Appropriate; Evaluate Therapeutic Effectiveness of Medication and Treatments (Cammie Coreas RN) Outcome: Patient will Report Absence or Relief of Pain Consistent with Established Pain Goal (Cammie Coreas RN) Status: Ongoing (Cammie Coreas RN) Outcome: Patient will have a Decrease in Signs and Symptoms of Discomfort (Cammie Coreas RN) Status: Ongoing (Cammie Coreas RN) Outcome: Pain will be Controlled During Procedures (Cammie Coreas RN) Status: Ongoing (Cammie Coreas RN) Anxiety State: Risk For (Cammie Coreas RN) Related To: Labor and Delivery Process; Medical Interventions (Cammie Coreas RN) Goal(s): Patient will have Decreased Anxiety and be able to Function at Acceptable Levels (Cammie Coreas RN) Interventions: Assess Verbal and Nonverbal Behavioral Indicators of Anxiety; Assist Patient to Identify and Verbalize Symptoms of Anxiety; Identify and Demonstrate Techniques to Control Anxiety; Assist Patient with Coping Mechanisms to Manage Anxiety; Provide Theraputic Touch for the Patient; Explain to Patient, Using a Calm Reassuring Approach and Nonmedical Terms, All Activities, Procedures, and Concerns; Instruct Patient and Family about Post Discharge Care, Limitations, Symptoms to Report and Resources Available (Cammie Coreas RN) Outcome: Patient will Identify, Verbalize and Demonstrate Techniques to Control Anxiety (Cammie Coreas RN) Status: Ongoing (Cammei Coreas RN) Outcome: Patient's Posture, Facial Expressions, Gestures and Activity Level will Reflect Decreased Anxiety (Cammie Coreas RN) Status: Ongoing (Cammie Coreas RN) Outcome: Patient will Verbalize a Sense of Control and/or Acceptance of the Situation (Cammie Coreas RN) Status: Ongoing (Cammie Coreas RN) Outcome: Patient will Identify and Utilize Support Person (Cammie Coreas RN) Status: Ongoing (Cammie Coreas RN) Knowledge Deficit State: Risk For (Cammie Coreas RN) Related To: Labor and Delivery Process; Impending Alterations in Family Dynamics (Cammie Coreas RN) Goal(s): Patient and Family will Accurately Verbalize Understanding of the Disease Process (Cammie Coreas RN) Interventions: Assess Motivation and Willingness of Patient/Family to Learn; Assess Preferred Learning Mode: One to One Instruction, Reading, Videos, Group Discussion or Demonstration; Assess Barriers to Learning: Pain, Emotional State, Language Barrier, Cognitive Impairment, Visual or Hearing Deficits; Assess Patient and Family Knowledge of Disease Process, Medications and Treatment; Discuss Therapy and/or Treatment Options, Describe Rationale Behind Management, Therapy and Treatment Recommendations; Instruct Patient and Family on Signs and Symptoms to Report; Instruct Patient and Family on Medication Effects and Side Effects; Provide Appropriate and Timely Education Using Multiple Techniques; Provide Patient and Family with Support Group Information and Resources; Give Clear and Thorough Explanations and Demonstrations (Cammie Coreas RN) Outcome: Patient and Family will Verbalize Understanding of Condition, Treatment and Signs and Symptoms to Report (Cammie Coreas RN) Status: Ongoing (Cammie Coreas RN) Outcome: Patient will Identify Perceived Learning Needs and Express Motivation to Learn (Cammie Coreas RN) Status: Ongoing (Cammie Coreas RN) Outcome: Patient will Verbalize Understanding of Desired Content, and/or Performs Desired Skill Prior to Discharge (Cammie Coreas RN) Status: Ongoing (Cammie Coreas RN) Infection State: Risk For (Cammie Coreas RN) Related To: Invasive Procedures (Cammie Coreas RN) Goal(s): The Patient will be Free of Infection, Vital Signs Stable and Lab Work within Normal Parameters (Cammie Coreas RN) Interventions: Instruct and Reinforce Proper Handwashing, Hygiene, and Care Techniques to Patient and Family; Monitor Vital Signs; Monitor Patient for the Following Signs of Infection: Fever, Abdominal Tenderness, Unusual Discharge; Monitor Aminiotic Fluid, Urine and Lochia for Color and Odor; Observe Wounds, Incisions and Invasive Line Sites for Redness, Drainage and Edema; Assess IV Sites per Hospital Policy; Monitor Lab and Test Results and Notify Provider of Abnormal Findings; Assess Nutritional Status and Promote Good Nutrition (Cammie Coreas RN) Outcome: Patient will Remain Free of Infection (Cammie Coreas RN) Status: Ongoing (Cammie Coreas RN) Outcome: Infection will be Recognized Early to Allow for Prompt Treatment (Cammie Coreas RN) Status: Ongoing (Cammie Coreas RN) Outcome: Patient will have Vital Signs Within Expected Range (Cammie Coreas RN) Status: Ongoing (Cammie Coreas RN) Injury State: Risk For (Cammie Coreas RN) Related To: Labor and Delivery Process (Cammie Coreas RN) Goal(s): Patient will Remain Free from Injury (Cammie Coreas RN) Interventions: Monitoring as per Hospital Protocol; Assess Neurological Status; Perform Risk Assessment of Patients with Induction and ; Perform Fall Risk Assessment and Prevention per Hospital Protocol; Perform DVT Risk Assessment and Prophylaxis per Hospital Protocol; Ensure that Oxygen, Suction, and Resuscitation Medications and Equipment are Readily Available; Confirm Patient ID Prior to Procedure(s) and Medication Administration per Hospital Policy (Cammie Coreas RN) Outcome: Successful Fall Risk Prevention (Cammie Coreas RN) Status: Ongoing (Cammie Coreas RN) Outcome: Patient will Deliver without Adverse Sequela (Cammie Coreas RN) Status: Ongoing (Cammie Coreas RN) Outcome: Patient's Neurological Status will Remain Stable (Cammie Coreas RN) Status: Ongoing (Cammie Coreas RN)
[2016-04-19] MEDS: SENNOSIDES/DOCUSATE 8.6-50 MG 1 EACH TABLET PO SCH (09:54)
[2016-04-19] MEDS: FERROUS SULFATE 325 MG TABLET PO SCH (09:54)
[2016-04-19] MEDS: PRENATAL VITAMIN W-O CA NO5/FE FUMARATE/FA CAPSULE PO SCH (09:54)
[2016-04-19] MEDS: DOCUSATE SODIUM 100 MG CAPSULE PO SCH (09:54)
[2016-04-19] MEDS ORDERED: SERTRALINE HCL 50 MG TABLET PO SCH (10:00)
[2016-04-19 11:52] VITALS: BP 124/79
--- NOTE | 2016-04-19 11:58 | PDOC DISCHARGE SUMMARY ---
Final Diagnosis Discharge Date: 04/19/16 - Final Diagnosis (1) Post term at 41 weeks gestation Is this a current diagnosis for this admission?: Yes (2) Vaginal delivery Is this a current diagnosis for this admission?: Yes Discharge Data - Discharge Medication Home Medications: [place]-3 Fatty Acids [Fish Oil] 300 mg PO DAILY 03/06/16 Pnv #116/Iron Fumarate/FA/Dha [Expecta Combo Pack] 1 each PO DAILY Sertraline HCl [Zoloft] 25 mg PO DAILY 04/07/16 Docusate Sodium [Colace 100 mg Capsule] 100 mg PO BID #60 capsule 04/19/16 Ibuprofen [Motrin 800 mg Tablet] 800 mg PO Q8HP PRN #90 tablet 04/19/16 Reason(s) for Admission: Onset of Labor, Group B Strep Positive Procedures: Ultrasound Intrapartum Procedure(s): Spontaneous Vaginal Delivery Complication(s): Laceration-Perineal Laceration-Degree: 2nd - [place] Data Baby 1 Male at 1 minute: 6 at 5 minutes: 8 Weight: 3742 kg Home with Mother: Yes Complications: No - Diagnosis Test Laboratory: Temp Pulse Resp BP Pulse Ox 98.4 F 110 H 16 138/84 H 99 04/19/16 07:22 04/19/16 07:22 04/19/16 07:22 04/19/16 07:22 04/19/16 07:22 04/17/16 04/18/16 10:24 07:20 RBC 4.67 3.66 L Hgb 14.3 11.1 L D Hct 41.4 32.3 L - Discharge information/Instructions Discharge Activity: Activity As Tolerated, Balance Activity w/Rest, No Lifting Over 10 Pounds, No Lifting/Push/Pulling, Pelvic Rest, Slowly Increase Activity, No tub bath Discharge Diet: Regular Disposition: HOME, SELF-CARE Follow up with: [facility] in: 4, Weeks Physical Exam (OB) Vital Signs: Temp Pulse Resp BP Pulse Ox 98.4 F 110 H 16 138/84 H 99 04/19/16 07:22 04/19/16 07:22 04/19/16 07:22 04/19/16 07:22 04/19/16 07:22 Intake & Output 04/18/16 04/19/16 04/20/16 06:59 06:59 06:59 Intake Total 300 Output Total 2600 1750 Balance -2600 -1450 Weight 88.1 kg - General General Appearance: Appears well In distress: None Note:: desires for contraception but will obtain at pp visit - Episiotomy/Laceration Site Condition: Well Approximated - Lochia Lochia Amount: Scant < 10 ml Lochia Color: Rubra/Red - Abdomen Description: Soft, Round Hernia Present: No Fundal Description: Firm, Midline Fundal Height: u/u - u/2 - Respiratory Respiratory Status: No respiratory distress - Extremities Upper extremity: Normal inspection Lower extremities: Normal inspection - Neurological Cognition: Normal Orientation: AAOx4 - Psychological Associated symptoms: Normal affect, Normal mood - bonding well with baby, helpful family at bedside.
[2016-04-19] MEDS: BENZOCAINE/MENTHOL AEROSOL SPRAY 56 ML TOP PRN (13:56)
== END 2016-04-19 14:30 | disposition home or self-care (01) | DRG 775 ==
LOC: LR 09:47 → 2S 21:43
PROVIDERS: ADMIT Obstetrics & Gynecology; ATTEND Obstetrics & Gynecology
PROC: 10E0XZZ Delivery of Products of Conception, External Approach (ICD-10-PCS; principal; 2016-04-17)
PROC: 0KQM0ZZ Repair Perineum Muscle, Open Approach (ICD-10-PCS; 2016-04-17)
PROC: 4A1HXCZ Monitoring of Products of Conception, Cardiac Rate, External Approach (ICD-10-PCS; 2016-04-17)
DX: O48.0 Post-term pregnancy (principal); O70.1 Second degree perineal laceration during delivery; O99.824 Streptococcus B carrier state complicating childbirth; O99.344 Other mental disorders complicating childbirth; F32.9 Major depressive disorder, single episode, unspecified; O77.0 Labor and delivery complicated by meconium in amniotic fluid; Z3A.41 41 weeks gestation of pregnancy; Z37.0 Single live birth
CPT/HCPCS: 36415; 85025; 85027; 85461; 86592; 86850; 86870; 86900; 86901; J1200; J2370; J2540; J2590; J2790; J3010; J3490

== ENCOUNTER 2016-04-23 11:01 | Emergency (ER) | payer MEDICAID ==
--- NOTE | 2016-04-23 11:18 | ER Document Report ---
ED Medical Screen (RME) - General Stated Complaint: NUMBNESS Mode of Arrival: Ambulatory Information source: Patient Notes: 25 y/o F who reports is 6 days post vaginal delivery presents to ED c/o of bilateral upper and lower extremity swelling, numbness, and tingling and generalized weakness since delivery. Denies fever, n/v. Referred to ED by [facility]. I have greeted and performed a rapid initial assessment of this patient. A comprehensive ED assessment and evaluation of the patient, analysis of test results and completion of the medical decision making process will be conducted by additional ED providers. TRAVEL OUTSIDE OF THE [place] IN LAST 30 DAYS: No - Related Data Allergies/Adverse Reactions: acetaminophen [From Tylenol] Allergy (Severe, Verified 04/17/16 03:02) Swelling of Throat cider vinegar Allergy (Severe, Verified 04/17/16 03:02) Swelling of Throat Physical Exam - General General appearance: Alert In distress: None - Respiratory Respiratory status: No respiratory distress
[2016-04-23 11:50] LABS: ABSOLUTE EOSINOPHILS # (AUTO) 0.3 10^3/uL (0.0-0.6); ABSOLUTE LYMPHOCYTES (AUTO) 2.2 10^3/uL (0.5-4.7); ABSOLUTE MONOCYTES (AUTO) 0.7 10^3/uL (0.1-1.4); ABSOLUTE NEUT (AUTO) 6.9 10^3/uL (1.7-8.2); BASOPHILS % (AUTO) 0.3 % (0-2); HEMATOCRIT 37.7 % (36.0-47.0); HEMOGLOBIN 12.9 g/dL (12.0-15.5); LYMPHOCYTES % (AUTO) 21.2 % (13-45); MEAN CORPUSCULAR HEMOGLOBIN 30.1 pg (27.0-33.4); MEAN CORPUSCULAR HGB CONC 34.2 g/dL (32.0-36.0); MEAN CORPUSCULAR VOLUME 88 fl (80-97); MONOCYTES % (AUTO) 7.3 % (3-13); RED BLOOD COUNT 4.28 10^6/uL (3.72-5.28); RED CELL DISTRIBUTION WIDTH 12.9 % (11.5-14.0); SEGMENTED NEUTROPHILS % (AUTO) 68.2 % (42-78); WHITE BLOOD COUNT 10.2 10^3/uL (4.0-10.5)
[2016-04-23 11:55] LABS: APPEARANCE,URINE SLIGHTLY-CLOUDY; BILIRUBIN,URINE NEGATIVE (NEGATIVE); GLUCOSE, URINE NEGATIVE (NEGATIVE); KETONES,URINE NEGATIVE (NEGATIVE); LEUKOCYTE ESTERASE,URINE LARGE (NEGATIVE); NITRITE,URINE NEGATIVE (NEGATIVE); PROTEIN,URINE 30 mg/dL (NEGATIVE); URINE SPECIFIC GRAVITY 1.021; UROBILINOGEN,URINE NEGATIVE mg/dL (<2.0)
[2016-04-23 12:17] LABS: ALANINE AMINOTRANSFERASE 18 U/L (9-52); ALBUMIN 3.9 g/dL (3.5-5.0); ALKALINE PHOSPHATASE 135 U/L (38-126); ANION GAP 11 (5-19); ASPARTATE AMINO TRANSFERASE 23 U/L (14-36); BILIRUBIN,TOTAL 0.6 mg/dL (0.2-1.3); BLOOD UREA NITROGEN 19 mg/dL (7-20); CALCIUM 9.7 mg/dL (8.4-10.2); CARBON DIOXIDE 21 mmol/L (22-30); CHLORIDE 108 mmol/L (98-107); CREATININE RESULT 0.63 mg/dL (0.52-1.25); GLUCOSE 73 mg/dL (75-110); POTASSIUM 4.4 mmol/L (3.6-5.0); SODIUM 140.2 mmol/L (137-145); TOTAL PROTEIN 6.7 g/dL (6.3-8.2)
[2016-04-23] MEDS ORDERED: CEFTRIAXONE RTU 1 GM/D5W 50 ML IV ONE (13:01)
[2016-04-23] MEDS ORDERED: FUROSEMIDE INJ/PF 20 MG/2 ML SDV IV ONE (13:21)
--- NOTE | 2016-04-23 13:24 | ER Document Report ---
ED General - General Chief Complaint: Numbness Stated Complaint: NUMBNESS Mode of Arrival: Ambulatory Information source: Patient Notes: Patient is 6 days status post vaginal delivery. Patient is . Patient went to her [facility] provider's office with a complaint of numbness to bilateral upper extremities, feeling shaky, and swelling to bilateral upper and lower extremities. Patient does complain of occasional dizziness in which the room seems to be spinning. Patient also reports cough for the past 2 days. Patient denies any headache pain. Patient denies Any previous history of hypertension or problems during her . Patient does complain of some mild lower pelvic pain that she attributes to her recent delivery. TRAVEL OUTSIDE OF THE [place] IN LAST 30 DAYS: No - HPI Onset: Yesterday Onset/Duration: Gradual Pain Level: 1 Associated symptoms: Nonproductive cough. denies: Chest pain, Fever, Headache Exacerbated by: Denies Relieved by: Denies Similar symptoms previously: No Recently seen / treated by doctor: Yes - Related Data Allergies/Adverse Reactions: acetaminophen [From Tylenol] Allergy (Severe, Verified 04/23/16 11:17) Swelling of Throat cider vinegar Allergy (Severe, Verified 04/23/16 11:17) Swelling of Throat Past Medical History - General Information source: Patient Last Menstrual Period: 6 days status post vaginal delivery - Social History Smoking Status: Never Smoker Chew tobacco use (# tins/day): No Frequency of alcohol use: None Drug Abuse: None Lives with: Family Family History: Reviewed & Not Pertinent Patient has suicidal ideation: No Patient has homicidal ideation: No Renal/ Medical History: Reports: Other - Patient with only 1 kidney. Denies: Hx Peritoneal Dialysis Psychiatric Medical History: Reports: Hx Anxiety, Hx Depression Surgical Hx: Negative Review of Systems - Review of Systems Constitutional: No symptoms reported. denies: Fever, Recent illness EENT: No symptoms reported Cardiovascular: Dizziness, Edema Respiratory: Cough Gastrointestinal: Abdominal pain. denies: Vomiting Genitourinary: No symptoms reported. denies: Dysuria Female Genitourinary: No symptoms reported, Vaginal bleeding - From recent delivery. denies: Vaginal discharge Musculoskeletal: No symptoms reported. denies: Back pain, Neck pain Skin: No symptoms reported. denies: Rash Hematologic/Lymphatic: No symptoms reported Neurological/Psychological: Numbness - Generalized numbness to bilateral upper extremities. denies: Headaches Physical Exam - Vital signs Vitals: Temp Pulse Resp BP Pulse Ox 98.0 F 73 20 143/98 H 97 04/23/16 11:14 04/23/16 11:14 04/23/16 11:14 04/23/16 11:14 04/23/16 11:14 - General General appearance: Appears well, Alert In distress: None - HEENT Head: Normocephalic, Atraumatic Eyes: Normal Nasal: Normal Mouth/Lips: Normal Mucous membranes: Normal Neck: Normal - Respiratory Respiratory status: No respiratory distress Chest status: Nontender Breath sounds: Normal. No: Rales, Rhonchi, Stridor Chest palpation: Normal - Cardiovascular Rhythm: Regular Heart sounds: S1 appreciated, S2 appreciated Murmur: No - Abdominal Inspection: Normal Distension: No distension Tenderness: Tender - Mild lower pelvic tenderness - Back Back: Normal, Nontender. No: CVA tenderness, Vertebra tenderness - Extremities General upper extremity: Normal inspection, Normal ROM, Other - Mild decreased strength bilateral upper extremities 4 out of 5 General lower extremity: Edema - 2+ to bilateral lower extremities, Normal ROM, Normal strength - Neurological Neuro grossly intact: Yes Cognition: Normal Zacarias Coma Scale Eye Opening: Spontaneous Zacarias Coma Scale Verbal: Oriented Zacarias Coma Scale Motor: Obeys Commands [place] Coma Scale Total: 15 - Psychological Associated symptoms: Normal affect, Normal mood - Skin Skin Temperature: Warm Skin Moisture: Dry Skin Color: Pale Course - Re-evaluation Re-evalutation: 04/23/16 13:00 Consulted with tile erector Sherrie, who advised patient to come to the emergency department today. States that patient has not had a history of hypertension during her although had an isolated elevated reading in the office that upon recheck was on the upper limits of normal. 04/23/16 13:[address] Person regarding patient presentation and diagnostic workup. Recommends consultation with [facility] given patient's mildly elevated blood pressure as well as proteinuria. 04/23/16 13:[address] Saul, discussed patient's diagnostic studies as well as physical exam findings. Patient without any headache symptoms although does complain of dizziness. Dr. Saul recommends giving patient small dose of Lasix and having patient follow up in the office on Tuesday. Does not recommend admission at this time. Discussed consultation with Dr Person who agrees with plan of care. 04/23/16 late entry Patient reports that she had numbness in which she could not feel anything to bilateral upper extremities. Patient states she is afraid to hold her child as she has no sensation to upper extremities. Patient was using a cell phone making phone calls upon provider's entry into room. Patient did report driving herself here in which she used bilateral upper extremities to maneuver the vehicle. - Vital Signs Vital signs: Temp Pulse Resp BP Pulse Ox 98.4 F 110 H 20 121/86 H 98 04/23/16 14:50 04/23/16 14:50 04/23/16 14:50 04/23/16 14:50 04/23/16 14:50 - Laboratory Result Diagrams: 04/23/16 11:40 04/23/16 11:40 Laboratory results interpreted by me: 04/23/16 04/23/16 04/23/16 11:40 11:40 11:40 Chloride 108 H Carbon Dioxide 21 L Glucose 73 L Alkaline Phosphatase 135 H NT-Pro-B Natriuret Pep 374 H Urine Protein 30 H Urine Blood LARGE H Ur Leukocyte Esterase LARGE H 04/23/16 13:51 Labs- Entire Visit 04/23/16 04/23/16 04/23/16 11:40 11:40 11:40 WBC 10.2 RBC 4.28 Hgb 12.9 Hct 37.7 MCV 88 MCH 30.1 MCHC 34.2 RDW 12.9 Plt Count 414 Seg Neutrophils % 68.2 Lymphocytes % 21.2 Monocytes % 7.3 Eosinophils % 3.0 Basophils % 0.3 Absolute Neutrophils 6.9 Absolute Lymphocytes 2.2 Absolute Monocytes 0.7 Absolute Eosinophils 0.3 Absolute Basophils 0.0 Sodium 140.2 Potassium 4.4 Chloride 108 H Carbon Dioxide 21 L Anion Gap 11 BUN 19 Creatinine 0.63 Est GFR ( Amer) > 60 Est GFR (Non-Af Amer) > 60 Glucose 73 L Calcium 9.7 Total Bilirubin 0.6 Direct Bilirubin 0.0 AST 23 ALT 18 Alkaline Phosphatase 135 H NT-Pro-B Natriuret Pep Total Protein 6.7 Albumin 3.9 Urine Color YELLOW Urine Appearance SLIGHTLY-CLOUDY Urine pH 5.0 Ur Specific [place] 1.021 Urine Protein 30 H Urine Glucose (UA) NEGATIVE Urine Ketones NEGATIVE Urine Blood LARGE H Urine Nitrite NEGATIVE Urine Bilirubin NEGATIVE Urine Urobilinogen NEGATIVE Ur Leukocyte Esterase LARGE H Urine WBC (Auto) 81 Urine RBC (Auto) 136 Urine Bacteria (Auto) TRACE Squamous Epi Cells Auto 8 U Non-Squamous Epis Auto 5 Urine Mucus (Auto) RARE Urine Ascorbic Acid NEGATIVE 04/23/16 11:40 WBC RBC Hgb Hct MCV MCH MCHC RDW Plt Count Seg Neutrophils % Lymphocytes % Monocytes % Eosinophils % Basophils % Absolute Neutrophils Absolute Lymphocytes Absolute Monocytes Absolute Eosinophils Absolute Basophils Sodium Potassium Chloride Carbon Dioxide Anion Gap BUN Creatinine Est GFR ( Amer) Est GFR (Non-Af Amer) Glucose Calcium Total Bilirubin Direct Bilirubin AST ALT Alkaline Phosphatase NT-Pro-B Natriuret Pep 374 H Total Protein Albumin Urine Color Urine Appearance Urine pH Ur Specific [place] Urine Protein Urine Glucose (UA) Urine Ketones Urine Blood Urine Nitrite Urine Bilirubin Urine Urobilinogen Ur Leukocyte Esterase Urine WBC (Auto) Urine RBC (Auto) Urine Bacteria (Auto) Squamous Epi Cells Auto U Non-Squamous Epis Auto Urine Mucus (Auto) Urine Ascorbic Acid Discharge - Discharge Clinical Impression: Peripheral edema, Pelvic pain UTI (urinary tract infection) Qualifiers: Urinary tract infection type: site unspecified Hematuria presence: with hematuria Qualified Code(s): N39.0 - Urinary tract infection, site not specified Proteinuria Qualifiers: Proteinuria type: unspecified Qualified Code(s): R80.9 - Proteinuria, unspecified Condition: Stable Disposition: HOME, SELF-CARE Instructions: Cephalexin ([facility]), Urinary Tract Infection ([facility]), Pelvic Pain ([facility] ), Post- Edema ([facility]) Additional Instructions: Return immediately for any new or worsening symptoms Followup with your primary care provider, call tomorrow to make a followup appointment Follow up with Dr. Ramirez on Tuesday morning for recheck. Return immediately for any new or worsening symptoms, headache, increased swelling, or any concerning symptoms Prescriptions: Cephalexin Monohydrate [Keflex 500 mg Capsule] 500 mg PO Q6H 5 Days Referrals: JAROCHO BELTRAN MD [Primary Care Provider] - 04/26/16
[2016-04-23 14:52] VITALS: BP 121/86
--- NOTE | 2016-04-23 18:01 | EKG REPORT ---
SEVERITY:- BORDERLINE ECG - SINUS ARRHYTHMIA, RATE 50-76 PROBABLE LEFT ATRIAL ABNORMALITY : Confirmed by: Ming Beltran 23-Apr-2016 18:00:36
== END 2016-04-23 14:50 | disposition home or self-care (01) ==
LOC: ER 11:01
DX: O12.2 Gestational edema with proteinuria (principal); O86.20 Urinary tract infection following delivery, unspecified; O90.89 Other complications of the puerperium, not elsewhere classified; R10.2 Pelvic and perineal pain; R20.0 Anesthesia of skin; R42 Dizziness and giddiness; R05 Cough; Z88.6 Allergy status to analgesic agent; Z91.018 Allergy to other foods; Z90.5 Acquired absence of kidney
CPT/HCPCS: 93005; 99284; 96374; 96375; 36415; 85025; 80053; 81001; 83880; 71020; 93010; J1940; J0696

== ENCOUNTER 2016-05-13 20:34 | Emergency (ER) | payer MEDICAID ==
--- NOTE | 2016-05-13 21:25 | ER Document Report ---
ED Medical Screen (RME) - General Stated Complaint: VAGINAL BLEEDING Notes: Patient is a 25-year-old female presents emergency Department complaining of vaginal bleeding. Patient states that she had a baby on April 17, was discharged home on antibiotic for urinary tract infection and told to follow-up with her STICK INSERTER. Patient is followed up with her STICK INSERTER told that she is healing well. Patient states she breast fed for about 3 days but then stopped and switched to formula. Patient states that she's had spotting on and off in her . States that she's had vaginal bleeding and abdominal cramping over the past 2 days but thought it was too early to have a period. Patient states that she is not on control. Admits to pyuria I have greeted and performed a rapid initial assessment of this patient. A comprehensive ED assessment and evaluation of the patient, analysis of test results and completion of the medical decision making process will be conducted by additional ED providers. TRAVEL OUTSIDE OF THE [place] IN LAST 30 DAYS: No - Related Data Allergies/Adverse Reactions: acetaminophen [From Tylenol] Allergy (Severe, Verified 04/23/16 11:17) Swelling of Throat cider vinegar Allergy (Severe, Verified 04/23/16 11:17) Swelling of Throat Past Medical History Renal/ Medical History: Denies: Hx Peritoneal Dialysis Psychiatric Medical History: Reports: Hx Anxiety, Hx Depression Physical Exam - Vital signs Vitals: Temp Pulse Resp BP Pulse Ox 98.3 F 78 16 135/93 H 98 05/13/16 21:06 05/13/16 21:06 05/13/16 21:06 05/13/16 21:06 05/13/16 21:06 Course - Vital Signs Vital signs: Temp Pulse Resp BP Pulse Ox 98.3 F 78 16 135/93 H 98 05/13/16 21:06 05/13/16 21:06 05/13/16 21:06 05/13/16 21:06 05/13/16 21:06
[2016-05-13 22:27] LABS: APPEARANCE,URINE CLOUDY; BILIRUBIN,URINE NEGATIVE (NEGATIVE); GLUCOSE, URINE NEGATIVE (NEGATIVE); KETONES,URINE NEGATIVE (NEGATIVE); LEUKOCYTE ESTERASE,URINE TRACE (NEGATIVE); NITRITE,URINE NEGATIVE (NEGATIVE); PROTEIN,URINE 30 mg/dL (NEGATIVE); URINE SPECIFIC GRAVITY 1.013; UROBILINOGEN,URINE NEGATIVE mg/dL (<2.0)
--- NOTE | 2016-05-13 23:05 | ER Document Report ---
ED GI/ - General Chief Complaint: Vaginal Bleeding Stated Complaint: VAGINAL BLEEDING Notes: Patient is a 25-year-old female that comes emergency department for chief complaint of heavy vaginal bleeding for the past 2 days. She states that one hour after she applied a pad she soaked through it, she states she slept for about an hour and woke and was blood "all over the bed". She has some lower abdominal cramping. Patient states she is 1 month with uncomplicated vaginal delivery on 04/17/2016, patient states she almost immediately began formula instead of breast-feeding. She denies fever. She denies dysuria. She states she felt lightheaded earlier but denies passing out. She states she was treated for urinary tract infection recently "through my IV last month". TRAVEL OUTSIDE OF THE [place] IN LAST 30 DAYS: No - Related Data Allergies/Adverse Reactions: acetaminophen [From Tylenol] Allergy (Severe, Verified 04/23/16 11:17) Swelling of Throat cider vinegar Allergy (Severe, Verified 04/23/16 11:17) Swelling of Throat Past Medical History - General Information source: Patient - Social History Smoking Status: Never Smoker Chew tobacco use (# tins/day): No Frequency of alcohol use: None Drug Abuse: None Lives with: Family Family History: Reviewed & Not Pertinent Patient has suicidal ideation: No Patient has homicidal ideation: No Renal/ Medical History: Denies: Hx Peritoneal Dialysis Psychiatric Medical History: Reports: Hx Anxiety, Hx Depression Surgical Hx: Negative - Immunizations Immunizations up to date: Yes Hx Diphtheria, Pertussis, Tetanus Vaccination: Yes Review of Systems - Review of Systems Constitutional: No symptoms reported EENT: No symptoms reported Cardiovascular: No symptoms reported Respiratory: No symptoms reported Gastrointestinal: See HPI Genitourinary: See HPI Female Genitourinary: See HPI Musculoskeletal: No symptoms reported Skin: No symptoms reported Hematologic/Lymphatic: No symptoms reported Neurological/Psychological: No symptoms reported Physical Exam - Vital signs Vitals: Temp Pulse Resp BP Pulse Ox 98.3 F 78 16 135/93 H 98 05/13/16 21:06 05/13/16 21:06 05/13/16 21:06 05/13/16 21:06 05/13/16 21:06 Interpretation: Normal - General General appearance: Appears well, Alert In distress: None - HEENT Head: Normocephalic, Atraumatic Eyes: Normal Conjunctiva: Normal Extraocular movements intact: Yes Eyelashes: Normal Pupils: PERRL Nasal: Normal Mouth/Lips: Normal Mucous membranes: Normal Pharynx: Normal Neck: Normal - Respiratory Respiratory status: No respiratory distress Chest status: Nontender Breath sounds: Normal. No: Decreased air movement, Wheezing Chest palpation: Normal - Cardiovascular Rhythm: Regular Heart sounds: Normal auscultation Murmur: No - Abdominal Inspection: Normal Distension: No distension Bowel sounds: Normal Tenderness: Nontender. No: Tender, Guarding Organomegaly: No organomegaly - Back Back: Normal, Nontender. No: Tender - Extremities General upper extremity: Normal inspection, Nontender, Normal ROM, Normal strength General lower extremity: Normal inspection, Nontender, Normal ROM, Normal strength - Neurological Neuro grossly intact: Yes Cognition: Normal Orientation: AAOx4 [place] Com[place] Scale Eye Opening: Spontaneous [place] Com[place] Scale Verbal: Oriented Zacarias Coma Scale Motor: Obeys Commands [place] Com[place] Scale Total: 15 Speech: Normal Motor strength normal: LUE, RUE, LLE, RLE Sensory: Normal - Psychological Associated symptoms: Normal affect, Normal mood - Skin Skin Temperature: Warm Skin Moisture: Dry Skin Color: Normal Course - Re-evaluation Re-evalutation: Urinalysis is nonspecific with likely contaminated sample with patient's vaginal bleeding. Urine culture obtained. Patient does not have any noted tenderness in the suprapubic or lower abdominal area on my examination. Pelvic exam is unremarkable with only moderate vaginal bleeding, no concerning discharge, patient not tachycardic or hypotensive. Very well appearing and alert on examination. I did discuss an ultrasound and lab workup, patient declined these, states that she wants to leave now, she does agree to follow-up with her BINDING CEMENTER [facility] C[facility] and return if she worsens in any way. - Vital Signs Vital signs: Temp Pulse Resp BP Pulse Ox 97.8 F 60 16 129/93 H 98 05/14/16 00:51 05/14/16 00:51 05/14/16 00:51 05/14/16 00:51 05/14/16 00:51 - Laboratory Laboratory results interpreted by me: 05/13/16 21:30 Urine Protein 30 H Urine Blood LARGE H Ur Leukocyte Esterase TRACE H Discharge - Discharge Clinical Impression: hemorrhage of vagina Condition: Stable Disposition: HOME, SELF-CARE Additional Instructions: Evaluation up to this point with no concerning abnormalities, please follow-up with [facility] for additional evaluation closely. Please return to emergency department for any concerning or worsening symptoms including passing out, dizziness, severe pain, very heavy bleeding, fever, or any other concerning symptoms. Referrals: JOE PADRON, [Primary Care Provider] - Follow up as needed
[2016-05-14 01:46] VITALS: BP 129/93
[2016-05-14 01:59] LABS: CHLAM PCR NOT DETECTED (NOT DETECT)
== END 2016-05-14 00:55 | disposition home or self-care (01) ==
LOC: ER 20:34
DX: N93.9 Abnormal uterine and vaginal bleeding, unspecified (principal); R10.30 Lower abdominal pain, unspecified
CPT/HCPCS: 81001; 81025; 87086; 87210; 87491; 87591; 99283

== ENCOUNTER 2019-10-09 08:37 | Emergency (ER) | payer MEDICAID ==
[2019-10-09] MEDS ORDERED: LIDOCAINE 2% URO-JET 5 ML KIT MM ONE ×2 (09:58→12:00)
[2019-10-09] MEDS ORDERED: NORMAL SALINE 1000 ML 1,000 ML IV ONE ×2 (09:59→10:04)
[2019-10-09] MEDS ORDERED: MORPHINE SULFATE 10 MG/ML INJ IV ONE ×2 (09:59→12:00)
[2019-10-09] MEDS ORDERED: ONDANSETRON HCL INJ/PF 4 MG/2 ML SDV IV ONE ×2 (09:59→12:00)
--- NOTE | 2019-10-09 10:36 | RADIOLOGY REPORT (SQ) ---
EXAM DESCRIPTION: KUB/ABDOMEN (SINGLE VIEW) IMAGES COMPLETED DATE/TIME: 10/09/2019 10:24 am REASON FOR STUDY: abd pain COMPARISON: None. NUMBER OF VIEWS: One view. TECHNIQUE: Supine radiographic image of the abdomen acquired. LIMITATIONS: None. FINDINGS: BOWEL GAS PATTERN: Normal bowel gas pattern. No dilated loops. CALCIFICATIONS: No suspicious calcifications. SOFT TISSUES: No gross mass or suggestion of organomegaly. HARDWARE: None in the abdomen. BONES: No acute fracture. No worrisome bone lesions. OTHER: No other significant finding. IMPRESSION: NO RADIOGRAPHIC EVIDENCE FOR ACUTE ABDOMINAL DISEASE. TECHNICAL DOCUMENTATION: JOB ID: [id number] 2010 [employer]- All Rights Reserved Reading location - IP/workstation name: [email or web address]
--- NOTE | 2019-10-09 10:39 | ER Document Report ---
Entered by DON RODRIGUEZ SCRIBE 10/09/19 0912 Acting as scribe for:LIZBET GUNTER MD ED GI/ - General Chief Complaint: Vomiting Stated Complaint: VOMITING,ABDOMINAL PAIN Time Seen by Provider: 10/09/19 09:11 Primary Care Provider: JOE PADRON DO [NO LOCAL MD] - Follow up as needed Mode of Arrival: Ambulatory Information source: Patient Notes: This 29 year old female patient presents to the emergency department today for complaints of "being unable to poop or pee", abdominal pain, and generalized body aches. She reports that her LMP was 5 days ago (10/04) and it was normal and on time. Patient mentions that she feels "hot and dizzy" but she is afebrile here. TRAVEL OUTSIDE OF THE [place] IN LAST 30 DAYS: No - Related Data Allergies/Adverse Reactions: acetaminophen [From Tylenol] Allergy (Severe, Verified 04/23/16 11:17) Swelling of Throat cider vinegar Allergy (Severe, Verified 04/23/16 11:17) Swelling of Throat Past Medical History - General Information source: Patient - Social History Smoking Status: Never Smoker Cigarette use (# per day): No Frequency of alcohol use: None Drug Abuse: None Occupation: unemployed Family History: Reviewed & Not Pertinent Renal/ Medical History: Reports: Other - Only has functioning left kidney. Right kidney atrophy. Psychiatric Medical History: Reports: Hx Anxiety, Hx Depression Surgical Hx: Negative - Immunizations Immunizations up to date: Yes Hx Diphtheria, Pertussis, Tetanus Vaccination: Yes Review of Systems - Review of Systems Constitutional: See HPI, Other - "feels hot" EENT: No symptoms reported Cardiovascular: See HPI, Dizziness Respiratory: No symptoms reported Gastrointestinal: See HPI, Abdominal pain, Constipation Genitourinary: See HPI, Retention Female Genitourinary: No symptoms reported Musculoskeletal: See HPI, Joint pain, Muscle pain Skin: No symptoms reported Hematologic/Lymphatic: No symptoms reported Neurological/Psychological: No symptoms reported -: Yes All other systems reviewed and negative Physical Exam - Vital signs Vitals: Temp 97.8 F 10/09/19 08:39 - Notes Notes: Physical Exam: General: Alert, appears anxious. HEENT: Normocephalic. Atraumatic. PERRL. Extraocular movements intact. Oropharynx clear. Neck: Supple. Non-tender. Respiratory: No respiratory distress. Clear and equal breath sounds bilaterally. Cardiovascular: Regular rate and rhythm. Not tachycardic. Abdominal: Obese. Left upper quadrant tenderness to palpation. No distension. No bowel sounds heard because the overhead air vent is blowing so hard it drowns out all auscultation. Back: No gross abnormalities. Extremities: Moves all four extremities. Upper extremities: Normal inspection. Normal ROM. Lower extremities: Normal inspection. No edema. Normal ROM. Neurological: Normal cognition. AAOx4. Normal speech. Psychological: Appears anxious. Skin: Warm. Dry. Normal color. Course - Re-evaluation Re-evalutation: 10/09/19 12:52 Reynolds catheter was placed, there was no urine. Patient did complain of feeling like she needed to urinate. 10/09/19 16:08 CT showed an obstructing left UVJ stone 4 mm stone. There is a solitary left kidney. 10/09/19 16:10 The case was discussed with Dr. Carr of [facility]. He requested the patient get up there as quickly as possible, preferably by POV. The patient called her mother who is coming over to pick her up and take her to [facility]. She will be discharged with a saline lock, she will receive the requested Rocephin IM to reduce delay in transfer. - Vital Signs Vital signs: Temp Pulse Resp BP Pulse Ox 98.0 F 52 L 13 134/86 H 100 10/09/19 12:53 10/09/19 12:53 10/09/19 12:53 10/09/19 12:53 10/09/19 12:53 - Laboratory Result Diagrams: 10/09/19 11:00 10/09/19 11:00 Laboratory results interpreted by me: 10/09/19 10/09/19 11:00 11:00 WBC 15.8 H Lymph % (Auto) 6.7 L Absolute Neuts (auto) 14.2 H Seg Neutrophils % 89.5 H Sodium 132.9 L Carbon Dioxide 19 L BUN 22 H Creatinine 1.69 H Est GFR ( Amer) 43 L Est GFR (MDRD) Non-Af 36 L Glucose 123 H - Diagnostic Test Radiology reviewed: Image reviewed, Reports reviewed - KUB--no acute process, paucity of bowel gas. Discharge - Discharge Clinical Impression: Hydronephrosis with renal and ureteral calculus obstruction, Solitary left kidney Leukocytosis Qualifiers: Leukocytosis type: unspecified Qualified Code(s): D72.829 - Elevated white blood cell count, unspecified Condition: Stable Disposition: Replaced by [facility] Additional Instructions: Go to the emergency room at [facility] in [place] to see Dr. Carr. Referrals: JOE PADRON DO [NO LOCAL MD] - Follow up as needed I personally performed the services described in the documentation, reviewed and edited the documentation which was dictated to the scribe in my presence, and it accurately records my words and actions.
[2019-10-09 11:23] LABS: ABSOLUTE LYMPHOCYTES (AUTO) 1.1 10^3/uL (0.5-4.7); ABSOLUTE MONOCYTES (AUTO) 0.6 10^3/uL (0.1-1.4); ABSOLUTE NEUT (AUTO) 14.2 10^3/uL (1.7-8.2); BASOPHILS % (AUTO) 0.3 % (0-2); HEMATOCRIT 43.1 % (36.0-47.0); HEMOGLOBIN 14.6 g/dL (12.0-15.5); LYMPHOCYTES % (AUTO) 6.7 % (13-45); MEAN CORPUSCULAR HEMOGLOBIN 30.3 pg (27.0-33.4); MEAN CORPUSCULAR HGB CONC 33.9 g/dL (32.0-36.0); MEAN CORPUSCULAR VOLUME 89 fl (80-97); MONOCYTES % (AUTO) 3.5 % (3-13); PLATELET COUNT 311 10^3/uL (150-450); RED BLOOD COUNT 4.82 10^6/uL (3.72-5.28); RED CELL DISTRIBUTION WIDTH 12.6 % (11.5-14.0); SEGMENTED NEUTROPHILS % (AUTO) 89.5 % (42-78); TOTAL CELLS COUNTED % (AUTO) 100 %; WHITE BLOOD COUNT 15.8 10^3/uL (4.0-10.5)
[2019-10-09 11:43] LABS: ALBUMIN 4.7 g/dL (3.5-5.0); ALKALINE PHOSPHATASE 78 U/L (38-126); ANION GAP 12 (5-19); ASPARTATE AMINO TRANSFERASE 35 U/L (14-36); BILIRUBIN,TOTAL 0.6 mg/dL (0.2-1.3); BLOOD UREA NITROGEN 22 mg/dL (7-20); CALCIUM 9.3 mg/dL (8.4-10.2); CARBON DIOXIDE 19 mmol/L (22-30); CHLORIDE 102 mmol/L (98-107); GLUCOSE 123 mg/dL (75-110); POTASSIUM 4.3 mmol/L (3.6-5.0); TOTAL PROTEIN 8.1 g/dL (6.3-8.2)
[2019-10-09] MEDS ORDERED: RINGERS SOLUTION,LACTATED 1,000 ML IV PRN (12:51)
--- NOTE | 2019-10-09 15:13 | RADIOLOGY REPORT (SQ) ---
EXAM DESCRIPTION: CT ABD/PELVIS WITH IV ONLY IMAGES COMPLETED DATE/TIME: 10/09/2019 3:02 pm REASON FOR STUDY: abd pain, leukocytosis COMPARISON: None. TECHNIQUE: CT scan of the abdomen and pelvis performed using helical scanning technique with dynamic intravenous contrast injection. No oral contrast. Images reviewed with lung, soft tissue, and bone windows. Reconstructed coronal and sagittal MPR images reviewed. Delayed images for evaluation of the urinary system also acquired. All images stored on PACS. All CT scanners at this facility use dose modulation, iterative reconstruction, and/or weight based d osing when appropriate to reduce radiation dose to as low as reasonably achievable (ALARA). [facility]: Dose Right [facility]: CareDose [facility]: Dose Right [facility]: Teradose 4D [facility]: 3D Product Imaging CONTRAST TYPE AND DOSE: contrast/concentration: Isovue 300.00 mmol/ml; Total Contrast Delivered: 93. 0 ml; Total Saline Delivered: 58.7 ml RENAL FUNCTION: BUN 22 creatinine 1.7 RADIATION DOSE: CT Rad equipment meets quality standard of care and radiation dose reduction techniq ues were employed. CTDIvol: 10.6 - 15.1 mGy. DLP: 2269 mGy-cm.. LIMITATIONS: None. FINDINGS: LOWER CHEST: No significant findings. No nodules or infiltrates. LIVER: Normal size. No masses. No dilated ducts. SPLEEN: Normal size. No focal lesions. PANCREAS: No masses. No significant calcifications. No adjacent inflammation or peripancreatic fluid collections. Pancreatic duct not dilated. GALLBLADDER: No identified stones by CT criteria. No inflammatory changes to suggest cholecystitis. ADRENAL GLANDS: No significant masses or asymmetry. RIGHT KIDNEY AND URETER: Absent kidney. LEFT KIDNEY AND URETER: Moderate hydronephrosis and hydroureter secondary to 4 mm stone in the ureter ovesical junction. Perinephric stranding. AORTA AND VESSELS: No aneurysm. No dissection. Renal arteries, SMA, celiac without stenosis. RETROPERITONEUM: No retroperitoneal adenopathy, hemorrhage or masses. BOWEL AND PERITONEAL CAVITY: No masses or inflammatory changes. No free fluid or peritoneal masses. APPENDIX: Normal. PELVIS: Reynolds catheter in the urinary bladder. ABDOMINAL WALL: No masses. No hernias. BONES: No significant or acute findings. OTHER: No other significant finding. IMPRESSION: 1. Moderate left hydronephrosis and hydroureter associated with 4 mm stone in the ureterovesical junc tion. 2. Absent right kidney. TECHNICAL DOCUMENTATION: JOB ID: [id number] Quality ID # [id number]: Final reports with documentation of one or more dose reduction techniques (e.g., Au tomated exposure control, adjustment of the mA and/or kV according to patient size, use of iterative reconstruction technique) 2010 [employer]- All Rights Reserved Reading location - IP/workstation name: [email or web address]
[2019-10-09] MEDS ORDERED: CEFTRIAXONE 1 GM/D5W RTU 1 GM/50 ML RTUPB IV ONE (15:52)
[2019-10-09] MEDS ORDERED: LIDOCAINE 1% INJ-PF (10 MG/ML) 30 ML SDV INJ ONE (15:57)
[2019-10-09] MEDS ORDERED: CEFTRIAXONE INJ 1000 MG VIAL IM ONE (15:57)
[2019-10-09 16:32] VITALS: BP 147/94
== END 2019-10-09 16:43 | disposition short-term general hospital (02) ==
LOC: ER 08:37
DX: N13.2 Hydronephrosis with renal and ureteral calculous obstruction (principal); D72.829 Elevated white blood cell count, unspecified; Q60.0 Renal agenesis, unilateral; R11.10 Vomiting, unspecified; R10.9 Unspecified abdominal pain; M79.10 Myalgia, unspecified site; R42 Dizziness and giddiness; Z20.828 Contact with and (suspected) exposure to other viral communicable diseases; Z88.6 Allergy status to analgesic agent
CPT/HCPCS: 99285; 96372; 96361; 96374; 96375; 36415; 84703; 85025; 87635; 80053; 74018; 74177; J3490; J2270; J0696; J2405; J7030; J7120; C9803

== ENCOUNTER 2020-03-01 18:04 | Outpatient (CLI) | payer MEDICAID ==
[2020-03-01 19:08] LABS: APPEARANCE,URINE SLIGHTLY-CLOUDY; BILIRUBIN,URINE NEGATIVE (NEGATIVE); COLOR,URINE YELLOW; GLUCOSE, URINE NEGATIVE (NEGATIVE); KETONES,URINE NEGATIVE (NEGATIVE); LEUKOCYTE ESTERASE,URINE SMALL (NEGATIVE); NITRITE,URINE NEGATIVE (NEGATIVE); PROTEIN,URINE NEGATIVE (NEGATIVE); URINE SPECIFIC GRAVITY 1.019; UROBILINOGEN,URINE NEGATIVE mg/dL (<2.0)
[2020-03-01 19:08] LABS: BACTERIA (WET MOUNT) 3+ BACTERIA SEEN; EPITHELIALS (WET MOUNT) 3+ EPITHELIALS SEEN; RBCS (WET MOUNT) 1+ RBCS SEEN; T.VAGINALIS (WET MOUNT) NO TRICHOMONAS SEEN; WBCS (WET MOUNT) 1+ WBCS SEEN; YEAST (WET MOUNT) NO YEAST SEEN
[2020-03-01 19:30] LABS: URINE AMPHETAMINES SCREEN NEGATIVE; URINE BARBITURATES SCREEN NEGATIVE; URINE BENZODIAZEPINES SCREEN NEGATIVE; URINE COCAINE SCREEN NEGATIVE; URINE MARIJUANA (THC) SCREEN NEGATIVE; URINE METHADONE SCREEN NEGATIVE; URINE PHENCYCLIDINE SCREEN NEGATIVE
[2020-03-01 20:39] LABS: CHLAM PCR NOT DETECTED (NOT DETECT)
== END 2020-03-01 20:00 | disposition home or self-care (01) ==
LOC: LC 18:04
PROVIDERS: ATTEND Obstetrics & Gynecology Gynecology
DX: O46.92 Antepartum hemorrhage, unspecified, second trimester (principal); Z88.6 Allergy status to analgesic agent; Z3A.22 22 weeks gestation of pregnancy
CPT/HCPCS: 80307; 81001; 87210; 87491; 87591